=== PATIENT | female | born 1935 | race Caucasian/White ===

== ENCOUNTER 2019-10-06 21:19 | Emergency (ER) | payer MEDICARE, OTHER, SELFPAY ==
[2019-10-06] VITALS (20 sets, daily range): BP systolic 150–185; BP diastolic 68–76; PULSE 77–98; RESP 20; TEMP 37.3; O2SAT 95–98; BMI 23.8
--- NOTE | 2019-10-06 22:30 | ED_ITS ---
Entered by Rand Carmen, acting as scribe for Mallory Marques HPI - General Adult General: Chief complaint: General Medical Stated complaint: high bp Time Seen by Provider: 10/06/19 22:28 Source: patient Mode of arrival: ambulatory Limitations: no limitations History of Present Illness: HPI narrative: 84 yo f came to the er for high blood pressure. Onset was today. Pt states that she has had a fever, pain urinating, and frequent urination. Pt is not having any nausea or vomiting at this time. Pt states that she is having some mild abd pain. MD complaint: high blood pressure Onset (ago): day(s) (today) Location: abdomen and genitals Radiation: non-radiation Severity: mild Quality: burning Pain Consistency: constant Relieving factors: none Exacerbating factors: none Associated symptoms: Deny chest pain, confusion, diaphoresis, dyspnea, headache (s), malaise, nausea, rash, palpitations, syncope or vomiting Review of Systems General: Reports: other (negative unless marked) Const: Reports: fever; Denies: chills, body aches, fatigue, malaise or diaphoresis Eyes: Denies: change in vision or blurry vision ENMT: Denies: throat pain, painful swallowing, hoarseness, ear pain, ear discharge, Change in hearing or nasal discharge Card: Denies: chest pain, palpitations, irregular heart rhythm, syncope, pre- syncope, shortness of breath on exertion or shortness of breath when lying down Resp: Denies: shortness of breath, productive cough, non-productive cough, wheezing, coughing up blood or chest congestion GI: Denies: abdominal pain, nausea, vomiting, vomiting blood, coffee grounds in vomit, diarrhea, constipation, cramping, blood in stool or black tarry stool : Denies: flank pain, painful urination, urinary frequency, urinary urgency, decreased urine ouput, urinary incontinence or blood in urine Musc: Denies: neck pain, back pain, extremity pain, extremity swelling, joint pain, joint swelling, joint warmth or joint stiffness Skin/Breast: Denies: rash, skin tenderness or yellow skin Neuro: Denies: headache, numbness in extremities, weakness in extremities, changes in sensation, lack of coordination, difficulty walking, dizziness, vertigo or confusion Endo: Denies: excessive thirst, tired all the time, cold intolerance, excessive sweating, flushing or hot flashes Levon/Lymph: Denies: easy bruising, easy bleeding, petechiae or enlarged lymph nodes All/Imm: Denies: hives, throat swelling, tongue swelling, facial swelling or acute wheezing PFSH ED PFSH: Statuses (acute, chronic, etc) shown below reflect problem list status as previously entered and may not be historically accurate Social History Smoking and tobacco status: never smoked Physical Exam Const: COMMON NORMALS: no apparent distress, oriented x3, no limitations, healthy appearing and well nourished EXAM LIMITATIONS: no altered mental status GENERAL APPEARANCE: cooperative, well kempt and well developed ORIENTATION/CONSCIOUSNESS: Yes awake HENMT: COMMON NORMALS: normocephalic, head/scalp atraumatic, hearing grossly normal bilaterally, external ears normal, EAC's normal, external nose normal and moist oral mucous membranes HEAD & SCALP: normal to inspection, normocephalic and atraumatic FACE & SINUS: normal facial exam and face symmetric NOSE: external nose normal and nares normal EXTERNAL EAR: Yes external ears normal EXTERNAL AUDITORY CANAL: EAC's normal MOUTH: oral and palatal mucosa normal and tongue normal Eye: COMMON NORMALS: PERRL, EOMs intact bilaterally, conjunctivae normal and no scleral icterus GENERAL EYE: normal appearance of both eyes and normal light reflex CONJUNCTIVA: Yes conjunctivae normal SCLERA: sclerae normal CORNEA: Yes corneas normal PUPIL: Yes PERRL DIRECT OPHTHALMOSCOPY: Yes normal light reflex Neck/C-Spine: COMMON NORMALS: full ROM, no lymphadenopathy, supple, no meningeal signs and no JVD GENERAL: Yes normal visual inspection and Yes trachea midline CERVICAL SPINE: Yes cervical ROM normal Chest: COMMONS NORMALS: inspection of chest normal and palpation of chest normal Resp: COMMON NORMALS: normal respiratory effort, no retractions, no use of accessory muscles and clear to auscultation bilaterally EFFORT & INSPECTION: Yes able to speak in complete sentences AUSCULTATION: clear to auscultation bilaterally Cardio: COMMON NORMALS: no JVD, regular rate, regular rhythm, S1 normal heart sound, S2 normal heart sound, no gallops, no clicks, no murmurs and no rub JUGULAR VENOUS DISTENTION: no JVD RATE: regular rate RHYTHM: regular rhythm HEART SOUNDS: S1 normal and S2 normal GI: COMMON NORMALS: soft to palpation, non-tender, no hepatosplenomegaly and no masses INSPECTION: Yes normal to inspection PALPATION: Yes soft and Yes no hepatosplenomegaly : COMMON NORMALS: Yes no CVA tenderness BLADDER/KIDNEY EXAM: Yes no CVA tenderness Back/Pelvis: COMMON NORMALS: no CVA tenderness, thoracic and lumbar spine normal to inspection, no thoracic nor lumbar tenderness and thoraco-lumbar ROM normal Extremity: COMMON NORMALS: normal to inspection, full ROM, normal capillary refill, no joint enlargement, no clubbing, cyanosis or edema and no calf tenderness Neuro: COMMON NORMALS: oriented x3, CN's II-XII intact bilaterally, moves all extremities, no focal motor deficits and no sensory deficits noted MENINGEAL SIGNS: Yes no meningeal signs Psych: COMMON NORMALS: mental status grossly normal, thought process normal, cooperative, affect normal, speech normal and activity/motor behavior normal APPEARANCE: Yes well kempt SPEECH: Yes normal speech THOUGHT PROCESS: normal thought process Skin: COMMON NORMALS: no rashes or lesions noted, skin turgor normal, no jaundice, no petechiae and no mottling GENERAL SKIN EXAM: no rashes or lesions noted and turgor normal Course Vital Signs: Vital signs: Vital Signs Temperature 99.2 F 10/06/19 22:14 Pulse Rate 80 10/07/19 00:14 Respiratory Rate 20 H 10/07/19 00:14 Blood Pressure 160/71 10/07/19 00:14 Pulse Oximetry 95 10/07/19 00:14 MDM - General Adult [facility] Narrative: Medical decision making narrative: The patient has a mild cystitis. She has no vomiting or fever. I will discharge the patient home on Omnicef after a shot of Rocephin here. Patient has no abdominal tenderness palpation. I see no sign of appendicitis. Lab Data: Labs: Lab Results 10/06/19 Range/Units 22:48 Urine Color Yellow (Yellow) Urine Appearance Cloudy (CLEAR) Urine pH 6.5 (5-7) Ur Specific Gravit y 1.015 (1.005-1.030) Urine Protein 1+ H (Negative) Urine Glucose (UA) 2+ (Normal) Urine Ketones Negative (Negative) Urine Occult Blood 2+ H (Negative) Urine Nitrate Positive H (Negative) Urine Bilirubin Neg (NEGATIVE) Urine Urobilinogen Norm (Negative) mg/dL Ur Leukocyte Nancy ase 2+ H (Negative) Urine RBC 5-10 H (0-2) /hpf Urine WBC >100 H (0-5) /hpf Ur Squamous Epith Cells 0-4 H (0-5) Urine Bacteria 3+ H (NONE) Discharge Plan Discharge Patient Disposition: Home, Self-Care Clinical Impression: Cystitis Condition: Stable Prescriptions: New cefdinir 300 mg capsule 300 mg PO Q12H 10 Days Qty: 20 RF: 0 No Action levothyroxine 75 mcg Tablet 75 mcg PO DAILY RF: 0 losartan-hydrochlorothiazide 100-25 mg Tablet 1 tab PO DAILY RF: 0 metformin 500 mg Tablet Extended Release 24 Hr 500 mg PO BID RF: 0 amlodipine 10 mg Tablet 10 mg PO DAILY RF: 0 lovastatin 20 mg Tablet 20 mg PO DAILY RF: 0 oxybutynin chloride 5 mg Tablet 5 mg PO DAILY RF: 0 Multi For Her 50 Plus 400-80 mcg Capsule 400 cap PO DAILY RF: 0 melatonin 3 mg Capsule 3 mg PO PRN RF: 0 vitamin E 400 unit Capsule 400 unit PO DAILY RF: 0 Vitamin D3 1,000 unit Capsule 1,000 unit PO DAILY RF: 0 Calcium 600 + D(3) 600 mg calcium- 200 unit Capsule PO RF: 0 Discharge Orders: Discharge Order (Routine); Ordered 10/06/19 Ordered By: Mallory Marques Referrals: Tavon Mclain DO [Primary Care Provider] - 1-3 days Discharge Diet: Advance as tolerated Discharge Activity: Increase activity as tolerated Patient Instructions: Urinary Tract Infection in Women (ED) Activity Restrictions/Additional Instructions: Please return to the ER immediately for any of the signs or symptoms listed on your discharge instruction sheets, worsening/changing of your symptoms, you are not getting better as quickly as expected, or for ANY other cause or concerns. 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
--- NOTE | 2019-10-06 23:19 | PC.NURSE ---
family requesting lab results. pt and family made aware that labs have not resulted yet. voiced understanding noted
[2019-10-06 23:21] LABS: Add Urine Culture? Yes; Add Urine Microscopic? YES; Bacteria Urine 3+; Bilirubin Urine Neg (NEGATIVE); Blood Urine 2+ (Negative); Glucose Urine UA 2+ (Normal); Ketones Urine Negative (Negative); Leukocyte Esterase Urine 2+ (Negative); Nitrate Urine Positive (Negative); Protein Urine 1+ (Negative); Specific Gravity, Urine 1.015 (1.005-1.030); Squamous Epithelial Cell Urine 0-4 (0-5); Urine Appearance Cloudy (CLEAR); Urine Color Yellow (Yellow); Urobilinogen Urine Norm (Negative); WBC Urine >100 /hpf (0-5); pH Urine 6.5 (5-7)
[2019-10-07] VITALS: BP 160/71; PULSE 80; O2SAT 95
[2019-10-07 00:05] VITALS: BP 160/71
[2019-10-07 00:10] VITALS: BP 160/71
[2019-10-07 00:14] VITALS: BP 160/71; PULSE 80; RESP 20; O2SAT 95
== END 2019-10-07 00:15 | disposition home or self-care (01) ==
PROVIDERS: Emergency Provider Emergency Medicine; Family Provider Electrodiagnostic Medicine; PCP Electrodiagnostic Medicine
DX: N30.90 Cystitis, unspecified without hematuria (principal)
CPT/HCPCS: 81003; 87086; 96372; 99283; A9270; J0696; J2001

== ENCOUNTER → 2020-06-26 15:43 | Outpatient (BNVA) | payer MEDICARE, OTHER, SELFPAY | PROVIDERS: Family Provider Electrodiagnostic Medicine; PCP Electrodiagnostic Medicine; Referring Provider Electrodiagnostic Medicine; Visit Provider Nurse Practitioner Family | DX: R32 Unspecified urinary incontinence (principal) | CPT/HCPCS: 80053; 81001 ==

== ENCOUNTER → 2020-07-17 10:49 | Outpatient (BNVA) | payer MEDICARE, OTHER, SELFPAY | PROVIDERS: Family Provider Electrodiagnostic Medicine; PCP Electrodiagnostic Medicine; Visit Provider Nurse Practitioner Family | DX: N39.41 Urge incontinence (principal); N39.0 Urinary tract infection, site not specified | CPT/HCPCS: 81003 ==

== ENCOUNTER 2020-08-05 14:26 | Outpatient (CLI) | payer MEDICARE, OTHER, SELFPAY ==
--- NOTE | 2020-08-05 14:37 | MM_ITS ---
WS: [id number] RIGHT DIGITAL MAMMOGRAM WITH CAD LEFT chest wall ultrasound. HISTORY: HX OF BREAST CA;LT MASTECTOMY COMPARISON: 05/09/2019, 05/08/2018 and 05/03/2017 Technique: CC, MLO and ML views. Breast composition: There are scattered areas of fibroglandular density. Stable scattered fibrogland ular densities within breasts are stable over multiple years. Benign vascular calcifications. LEFT chest wall ultrasound. Patient describes a palpable area over the LEFT chest wall at the site of the mastectomy. Ultrasound is directed to that area today. There is no mass identified. The ribs are very close to the surface o f the skin. MM/[place] [id number] IMPRESSION: BI-RADS: 2-Benign FOLLOW UP: 1 Year Follow-up No mass along the LEFT chest wall at the lumpectomy site and palpable site.
== END 2020-08-05 14:27 | disposition home or self-care (01) ==
PROVIDERS: PCP Electrodiagnostic Medicine; Visit Provider Electrodiagnostic Medicine
DX: Z85.3 Personal history of malignant neoplasm of breast (principal); Z90.12 Acquired absence of left breast and nipple
CPT/HCPCS: 76642; 77065

== ENCOUNTER 2020-09-16 11:03 | Outpatient (CLI) | payer MEDICARE, SELFPAY ==
--- NOTE | 2020-09-16 11:21 | XRR_ITS ---
PROCEDURE INFORMATION: Exam: XR Lumbosacral Spine, 2 or 3 Views Exam date and time: 09/16/2020 12:04 PM Age: 85 years old Clinical indication: Pain and injury or trauma; Blunt trauma (contusions or hematomas); Low back pain; Prior surgery; Surgery date: 6+ months; Patient HX: C/O acute back pain after fall, left rib pain. HX of breast cancer; Additional info: Acute back pain/accidental fall/htn TECHNIQUE: Imaging protocol: XR of the lumbosacral spine, 2 or 3 views. COMPARISON: No relevant prior studies available. FINDINGS: Bones/joints: No fracture or other acute abnormalities are present. Moderate degenerative disease is present with disc space narrowing and sclerosis. There is sclerosis and hypertrophy of the lower lumbar facet joints. There is no malalignment. Soft tissues: Unremarkable. Vasculature: There is prominent atherosclerotic calcification of the aorta. XR/XR lumbar spine 2-3V* [id number] IMPRESSION: Moderate chronic degenerative disease. No acute abnormalities are seen in the lumbar spine.
--- NOTE | 2020-09-16 11:21 | XRR_ITS ---
PROCEDURE INFORMATION: Exam: XR Ribs, Bilateral Exam date and time: 09/16/2020 12:04 PM Age: 85 years old Clinical indication: Pain and injury or trauma; Rib area, left side; Blunt trauma; Other: Left rib and low back pain; Prior surgery; Surgery date: 6+ months; Surgery type: Breast; Patient HX: C/O left rib pain and low back after fall; Additional info: Left sided rib pain/accidental fall TECHNIQUE: Imaging protocol: XR of the bilateral ribs. Views: 3 views. COMPARISON: CR Chest 1 [place] [id number] 02/23/2019 12:58 PM FINDINGS: Bones/joints: The ribs appear normal bilaterally.. Soft tissues: Surgical clips are present in the left axilla. XR/XR ribs BI 3V* [id number] IMPRESSION: Normal ribs.
== END 2020-09-16 11:04 | disposition home or self-care (01) ==
LOC: RAD 11:12
PROVIDERS: PCP Electrodiagnostic Medicine; Visit Provider Electrodiagnostic Medicine
DX: R07.81 Pleurodynia (principal); M54.89 Other dorsalgia; I10 Essential (primary) hypertension; W19.XXXA Unspecified fall, initial encounter
CPT/HCPCS: 71110; 72100

== ENCOUNTER 2020-10-02 09:27 | Outpatient (CLI) | payer MEDICARE, OTHER, SELFPAY ==
--- NOTE | 2020-10-02 09:49 | CT_ITS ---
WS: [id number] CT TEMPORAL BONES TECHNIQUE: Noncontrast CT of the temporal bones with coronal and sagittal reformatted images. CLINICAL INFORMATION: OTORRHEA L EAR/TYMPANIC MEMBRANE L EAR COMPARISON: CT head 6 [id number] DLP: 1993.[address] scans at [facility] use at least one of these dose optimization techniques: automat ed exposure control; mA and/or kV adjustment per patient size (includes targeted exams where dose is matched to clinical indication); or iterative reconstruction. FINDINGS: RIGHT: Mastoid air cells are well aerated. Normal external auditory canal. Ossicles are normal in appearance . Middle ear is well aerated. Normal tegmen tympani. Semicircular canals and cochlea are normal in ap pearance. Prussak's space is normal. Normal inner ear structures. Normal vestibular aqueduct. Facial nerve recess is normal. LEFT: Chronic appearing opacification of the left mastoid air cells and left middle ear. Opacification of t he epitympanum, mesotympanum and hypotympanum. Soft tissue thickening in the middle ear surrounds the ossicles. Thickening of the tympanic membrane. Sclerosis involving the left mastoid compatible with chronic mastoiditis. Normal external auditory canal. Ossicles are normal in appearance. Normal tegmen tympani. Semicircula r canals and cochlea are normal in appearance. Normal vestibular aqueduct. Facial nerve recess is nor mal. Visualized intracranial contents and posterior fossa are normal. Mild mucosal thickening paranasal si nuses. Normal posterior nasopharynx. Small retention cysts in the maxillary sinuses. Intracranial vas cular calcification. CT/CT temporal bone wo con* [id number] IMPRESSION: 1. Chronic appearing opacification of the left middle ear and mastoid air cell s. Soft tissue opacification of the middle ear with thickening of the tympanic membrane. This is likely due to chronic infectious or inflammatory etiologies. 2. Left Scutum appears intact. Ossicles appear intact. 3. Chronic appearing opacification left mastoid air cells with sclerosis consi stent with chronic mastoiditis. 4. Right mastoid air cells are well aerated. Right inner ear structures are no rmal.
== END 2020-10-02 09:28 | disposition home or self-care (01) ==
PROVIDERS: PCP Electrodiagnostic Medicine; Visit Provider Specialist
DX: D14.0 Benign neoplasm of middle ear, nasal cavity and accessory sinuses (principal); H72.02 Central perforation of tympanic membrane, left ear; H73.892 Other specified disorders of tympanic membrane, left ear; H92.12 Otorrhea, left ear
CPT/HCPCS: 70480

== ENCOUNTER → 2021-05-12 16:52 | Outpatient (BNVA) | payer MEDICARE, OTHER, SELFPAY | PROVIDERS: PCP Electrodiagnostic Medicine; Visit Provider Nurse Practitioner Family | DX: N39.0 Urinary tract infection, site not specified (principal) | CPT/HCPCS: 81000 ==

== ENCOUNTER 2021-06-02 22:18 | Emergency (ER) | payer MEDICARE, OTHER, SELFPAY ==
[2021-06-02 22:34] VITALS: BP 187/86; PULSE 94; RESP 18; TEMP 36.3; O2SAT 99; BMI 22.6
--- NOTE | 2021-06-02 22:54 | ED_ITS ---
HPI - Female Genitourinary General: Chief complaint: Urogenital-Female Stated complaint: bladder infection Time Seen by Provider: 06/02/21 22:53 History of Present Illness: HPI Narrative: Patient is a an 85-year-old female comes to the ED with a UTI. Patient saw the nurse practitioner Dr. Foote's office today and she was diagnosed with a UTI. She was sent home with a prescription for Cipro, but was unable to get to the pharmacy and pick it up today. Just prior to arrival to the ED patient started feeling a little hot so she decided come to the ED to be evaluated. Upon arrival here in the ED she says her symptoms of feeling hot have completely resolved. She is asymptomatic and has no complaints. Denies any fever, chills, chest pain, shortness of breath, abdominal pain, nausea/vomiting, bowel symptoms, headache. She does endorse some dysuria. She was wanting to get dose of her Cipro tonight here in the ED so she does not have to wait till tomorrow to get her first dose when she picks up her prescription. Associated symptoms: Deny abdominal pain, headache(s) or nausea Review of Systems Narrative: Hot flash episode. Const: Denies: fever(s), chills or fatigue Eyes: Denies: change in vision or eye discomfort ENMT: Denies: throat pain, odynophagia, nasal discharge or nasal congestion Card: Denies: chest pain, palpitations, edema, swelling of feet/ankles, dyspnea on exertion or orthopnea Resp: Denies: dyspnea, productive cough or non-productive cough GI: Denies: abdominal pain, nausea, vomiting, diarrhea, constipation or hematochezia : Reports: dysuria; Denies: flank pain or hematuria Musc: Denies: neck pain, back pain or extremity swelling Skin/Breast: Denies: rash or new lesions Neuro: Denies: headache(s), numbness in extremities or weakness in extremities PFSH ED PFSH: Medical History Cystocele HTN (hypertension) Hx of breast cancer Hypothyroidism Recurrent UTI Urgency incontinence Surgical History H/O arthroscopy of left knee H/O mastectomy LEFT H/O tubal ligation Family History Sister CAD (coronary artery disease) Brother CAD (coronary artery disease) Father Cancer Mother Heart disease Blood clots in brain Social History Alcohol intake: never Marital status: / Current occupational status: retired History of recent travel: No Physical Exam Const: COMMON NORMALS: no acute distress, patient oriented x3, healthy appearing and alert GENERAL APPEARANCE: cooperative and comfortable HENMT: COMMON NORMALS: normocephalic HEAD & SCALP: normocephalic MOUTH: Normal oral and palatal mucosa present THROAT: posterior oropharynx normal and uvula midline Eye: COMMON NORMALS: Equal, round and reactive pupils present PUPIL: Yes Equal, round and reactive pupils present Neck/C-Spine: COMMON NORMALS: supple GENERAL: Yes normal visual inspection Resp: COMMON NORMALS: normal respiratory effort, No retractions, No use of accessory muscles and clear to auscultation bilaterally AUSCULTATION: clear to auscultation bilaterally Cardio: COMMON NORMALS: regular rate, regular rhythm, S1 normal heart sound present, S2 normal heart sound present, No gallops present (Cardio), No clicks present (Cardio), No murmurs present (Cardio) and Peripheral pulses 2+ throughout RATE: regular rate RHYTHM: regular rhythm HEART SOUNDS: S1 normal heart sound present and S2 normal heart sound present PERIPHERAL PULSES: Peripheral pulses 2+ throughout GI: COMMON NORMALS: Normal to inspection, nondistended, normoactive bowel sounds present, Soft to palpation, non-tender and no masses PALPATION: Yes Soft to palpation : COMMON NORMALS: Yes no CVA tenderness BLADDER/KIDNEY EXAM: Yes no CVA tenderness Back/Pelvis: COMMON NORMALS: no CVA tenderness Extremity: COMMON NORMALS: normal to inspection Neuro: COMMON NORMALS: patient oriented x3 and moves all extremities SENSORIUM/ORIENTATION: Yes alert Skin: GENERAL SKIN EXAM: dry skin Course Vital Signs: Vital signs: Vital Signs Temperature 97.4 F L 06/03/21 00:04 Pulse Rate 72 06/03/21 00:04 Respiratory Rate 18 06/03/21 00:04 Blood Pressure 137/64 06/03/21 00:04 Pulse Oximetry 99 06/03/21 00:04 MDM - Female MDM Narrative: Medical decision making narrative: Patient is a 85-year-old fe male that comes to the ED with UTI symptoms. Patient was seen at urologist office earlier today and diagnosed with a UTI. She was sent home with a prescription for Cipro but was unable to pick it up today so she has not taken her first dose yet. She is developed an episode of some hot flashes and came to the ED for evaluation. She said her hot flashes resolved before she arrived to the ED and is currently asymptomatic. She has no other complaints and would like to get dose of ciprofloxacin here in the ED. Vitals are stable exam is benign. UA was performed and showed some bacteria and some white and red blood cells. She was given a dose of Cipro while here in the ED and diagnosed with a UTI and discharged home. Patient was told to follow-up with PCP in 7 to 10 days for reevaluation. Return to ED precautions given. Patient understood and agree with plan. Lab Data: Attestation: I reviewed the patient's lab results. Labs: Lab Results 06/02/21 Range/Units 22:35 Urine Color Yellow (Yellow) Urine Appearance Clear (CLEAR) Urine pH 7 (5-7) Ur Specific Gravit y 1.000 L (1.005-1.030) Urine Protein Trace (Negative) Urine Glucose (UA) Norm (Normal) Urine Ketones Negative (Negative) Urine Blood Neg (Negative) Urine Nitrate Negative (Negative) Urine Bilirubin Neg (Negative) Urine Urobilinogen Norm (Negative) mg/dL Ur Leukocyte Nancy ase Negative (Negative) Urine RBC 0-4 H (0-2) /hpf Urine WBC 0-4 H (0-5) /hpf Ur Squamous Epith Cells 0-4 H (0-5) /hpf Amorphous Sediment Not Reportable Urine Bacteria 3+ H (NONE) /hpf Discharge Plan Discharge Patient Disposition: Home Clinical Impression: UTI (urinary tract infection) Qualifiers: Urinary tract infection type: acute cystitis Hematuria presence: with hematuria Qualified Code(s): N30.01 - Acute cystitis with hematuria Condition: Stable Prescriptions: No Action ascorbic acid (vitamin C) 1,000 mg tablet 1 gm PO DAILY RF: 0 levothyroxine 75 mcg Tablet 75 mcg PO DAILY RF: 0 losartan-hydrochlorothiazide 100-25 mg Tablet 1 tab PO DAILY RF: 0 amlodipine 10 mg Tablet 10 mg PO DAILY RF: 0 Multi For Her 50 Plus 400-80 mcg Capsule 400 cap PO DAILY RF: 0 vitamin E 400 unit Capsule 400 unit PO DAILY RF: 0 Calcium 600 + D(3) 600 mg calcium- 200 unit capsule PO BID RF: 0 Discharge Orders: Discharge ED (Routine); Ordered 06/02/21 Ordered By: Jose Armando Portillo Referrals: Tavon Mclain, DO [Primary Care Provider] - Discharge Diet: Regular Discharge Activity: Resume usual activity Patient Instructions: Urinary Tract Infection in Women (ED) Activity Restrictions/Additional Instructions: Follow-up with medical provider as directed in 7 to 10 days for reevaluation. Go get your previously prescribed ciprofloxacin prescription filled tomorrow morning and start taking it as directed.. Return to the ER or your medical provider if condition worsens. Please read and understand discharge instructi ons. Thank you for choosing [facility] for your healthcare needs today. Please realize this is an emergency room and that we are providing you with a medical screening exam and this may not be complete and all inclusive of all the testing and or work up that you may need to determine your ailment or severity of your illness. It is very important that you follow up as instructed or that you return to the Emergency Department should you have concerns or if your condition changes or worsens in any way. Coding Level of Care Code ED Certified Adapted Physical Educator for Yumiko Reza Exam Comprehensive
[2021-06-02 22:56] LABS: Add Urine Culture? Yes; Add Urine Microscopic? YES; Bacteria Urine 3+ /hpf; Bilirubin Urine Neg (Negative); Blood Urine Neg (Negative); Glucose Urine UA Norm (Normal); Ketones Urine Negative (Negative); Leukocyte Esterase Urine Negative (Negative); Nitrate Urine Negative (Negative); Protein Urine Trace (Negative); RBC Urine 0-4 /hpf (0-2); Squamous Epithelial Cell Urine 0-4 /hpf (0-5); Urine Appearance Clear (CLEAR); Urine Color Yellow (Yellow); Urobilinogen Urine Norm (Negative); WBC Urine 0-4 /hpf (0-5); pH Urine 7 (5-7)
[2021-06-02] MEDS: ciprofloxacin 500 mg Tablet PO (23:58)
[2021-06-03] VITALS: BP 137/64; PULSE 72; RESP 18; TEMP 36.3; O2SAT 99
[2021-06-03 00:04] VITALS: BP 137/64; PULSE 72; RESP 18; TEMP 36.3; O2SAT 99
== END 2021-06-03 00:02 | disposition home or self-care (01) ==
PROVIDERS: Emergency Medicine; Emergency Provider Physician Assistant; PCP Electrodiagnostic Medicine
DX: N30.01 Acute cystitis with hematuria (principal); I10 Essential (primary) hypertension; Z85.3 Personal history of malignant neoplasm of breast
CPT/HCPCS: 81001; 81003; 87077; 87086; 87186; 99283

== ENCOUNTER → 2021-06-22 14:10 | Outpatient (BNVA) | payer MEDICARE, OTHER, SELFPAY | PROVIDERS: PCP Electrodiagnostic Medicine; Visit Provider Nurse Practitioner Family | DX: N39.0 Urinary tract infection, site not specified (principal); N39.41 Urge incontinence | CPT/HCPCS: 81003 ==

== ENCOUNTER → 2021-07-27 10:32 | Outpatient (BNVA) | payer MEDICARE, OTHER, SELFPAY | PROVIDERS: PCP Electrodiagnostic Medicine; Visit Provider Urology | DX: N39.0 Urinary tract infection, site not specified (principal) | CPT/HCPCS: 81003 ==

== ENCOUNTER 2021-10-01 09:29 | Outpatient (CLI) | payer MEDICARE, OTHER, SELFPAY ==
--- NOTE | 2021-10-01 09:38 | MM_ITS ---
WS: [id number] DIAGNOSTIC RIGHT DIGITAL MAMMOGRAM WITH CAD HISTORY: HX OF BREAST Ca; lt MASTECTOMY COMPARISON: 10/05/2019, 05/09/2019 and 05/08/2018, 04/30/2016 Technique: CC, MLO and ML views. Breast composition: Scattered asymmetries scattered throughout the breast are stable since at least . Breast arterial calcifications and benign round calcifications. MM/[place] [id number] IMPRESSION: BI-RADS: 2-Benign FOLLOW UP: 1 Year Follow-up
== END 2021-10-01 09:30 | disposition home or self-care (01) ==
LOC: RADSHAW 09:35
PROVIDERS: PCP Electrodiagnostic Medicine; Visit Provider Electrodiagnostic Medicine
DX: Z85.3 Personal history of malignant neoplasm of breast (principal); Z90.12 Acquired absence of left breast and nipple
CPT/HCPCS: 77065

== ENCOUNTER 2021-10-26 18:33 | Emergency (ER) | payer MEDICARE, OTHER, SELFPAY ==
[2021-10-26 18:45] VITALS: BP 169/97; PULSE 101; RESP 18; TEMP 38.4; O2SAT 94; BMI 22.9
--- NOTE | 2021-10-26 19:00 | XRR_ITS ---
PROCEDURE INFORMATION: Exam: XR Chest Exam date and time: 10/26/2021 7:00 PM Age: 86 years old Clinical indication: Cough and fever; Additional info: Fever, cough TECHNIQUE: Imaging protocol: XR of the chest. Views: 1 view. COMPARISON: No relevant prior studies available. FINDINGS: Lungs: The lungs are hyperinflated, consistent with COPD. Minimal increased density at the left lung base, consistent with atelectasis versus early infiltrate. The right lung appears unremarkable. Pleural spaces: No pleural effusion. No pneumothorax. Heart/Mediastinum: No cardiomegaly. Vasculature: Atherosclerosis of the thoracic aorta. Bones/joints: Degenerative thoracic spine changes are noted. XR/XR chest 1V portable [id number] IMPRESSION: 1. The lungs are hyperinflated, consistent with COPD. 2. Minimal increased density at the left lung base, consistent with atelectasis versus early infiltrate. 3. The right lung appears unremarkable.
[2021-10-26 19:52] LABS: Basophils % 0.2 %; Eosinophils % 0.3 %; Hematocrit 33.4 % (37.0-47.0); Hemoglobin 10.9 g/dL (11.5-15.3); Lymphocytes # 0.7 10^3/uL (0.8-4.8); Mean Corpuscular HGB Conc 32.6 g/dL (30.0-36.0); Mean Corpuscular Hemoglobin 25.5 pg (28.0-34.0); Monocytes # 0.4 10^3/uL (0.2-0.9); Monocytes % 7.1 %; Neutrophils # 4.81 10^3/uL (1.8-7.7); Neutrophils % 79.9 %; Nucleated Red Blood Cells % 0 %; Platelet Count 235 10^3/cmm (130-400); Red Blood Count 4.28 10^6/uL (4.1-5.3); Red Cell Distribution Width 15.5 % (12.1-15.1)
[2021-10-26 20:04] LABS: Lactic Sepsis W/Reflex 0.7 mmol/L (0.5-2.2)
[2021-10-26 20:06] LABS: Alanine Aminotransferase 12 U/L (0-33); Albumin Level 3.9 g/dL (3.5-5.2); Alkaline Phosphatase 67 IU/L (35-105); Anion Gap 20.4 (5-19); Aspartate Amino Transferase 25 U/L (0-32); Blood Urea Nitrogen 26 mg/dL (8-23); Calcium 8.7 mg/dL (8.5-10.5); Carbon Dioxide 23 mmol/L (22-29); Chloride 94 mmol/L (98-107); Globulin 2.6 g/dL (1.3-4.6); Glucose 159 mg/dL (65-115); Osmolality Calculated 286 mOsm/kg (285-295); Potassium 3.4 mmol/L (3.5-5.1); Sodium 134 mmol/L (136-145); Total Bilirubin 0.2 mg/dL (0.15-1.2); Total Protein 6.5 g/dL (6.6-8.7)
--- NOTE | 2021-10-26 22:01 | W.ED.FEVER ---
HPI - Fever General: Chief Complaint: Fever Stated Complaint: fever last week, cough x 1 wk, vomiting/diarrhea Time Seen by Provider: 10/26/21 21:50 Source: patient Mode of arrival: ambulatory Limitations: no limitations History of Present Illness: 86-year-old female states over the last 5 to 6 days she been having some slight body aches along with fever she also had vomiting diarrhea and a slight cough. She has been around other people but unsure if she is actually been exposed to Covid. She states that she actually feels better currently and would just like to go home and she has been waiting here for some time. She had blood work out in the waiting room states that her vomiting diarrhea is improved slightly she has no shortness of breath she states she has had this persistent cough. Associated symptoms: Reports chills, diarrhea, nausea and vomiting; Deny chest pain, dysuria or headache(s) Review of Systems Const: Reports: fever(s) and chills Eyes: Denies: blurry vision or eye discomfort ENMT: Denies: throat pain or dental pain Card: Denies: chest pain Resp: Reports: non-productive cough GI: Reports: nausea, vomiting and diarrhea : Denies: dysuria Musc: Denies: neck pain or back pain Skin/Breast: Denies: rash Neuro: Denies: headache(s) Psych: Denies: depression Levon/Lymph: Denies: easy bruising All/Imm: Denies: urticaria PFSH ED PFSH: Medical History Cystocele HTN (hypertension) Hx of breast cancer Hypothyroidism Recurrent UTI Urgency incontinence Surgical History H/O arthroscopy of left knee H/O mastectomy LEFT H/O tubal ligation Family History Sister CAD (coronary artery disease) Brother CAD (coronary artery disease) Father Cancer Mother Heart disease Blood clots in brain Social History Smoking and tobacco status: never smoked Alcohol intake: never Marital status: / Current occupational status: retired History of recent travel: No Female Reproductive History: Spontaneous abortions: No Physical Exam Const: COMMON NORMALS: no acute distress, patient oriented x3 and healthy appearing HENMT: COMMON NORMALS: normocephalic and atraumatic HEAD & SCALP: normocephalic and atraumatic Eye: COMMON NORMALS: Equal, round and reactive pupils present and EOMs intact bilaterally PUPIL: Yes Equal, round and reactive pupils present Neck/C-Spine: COMMON NORMALS: full ROM and supple Chest: COMMONS NORMALS: normal inspection of the chest and normal palpation of entire chest wall Resp: COMMON NORMALS: normal respiratory effort, No retractions, No use of accessory muscles and clear to auscultation bilaterally AUSCULTATION: clear to auscultation bilaterally Cardio: COMMON NORMALS: regular rate, regular rhythm and No murmurs present (Cardio) RATE: regular rate RHYTHM: regular rhythm GI: COMMON NORMALS: Normal to inspection, nondistended, normoactive bowel sounds present, Soft to palpation, non-tender and no masses PALPATION: Yes Soft to palpation Extremity: COMMON NORMALS: normal to inspection and full ROM Neuro: COMMON NORMALS: patient oriented x3, moves all extremities and no focal motor deficits Psych: COMMON NORMALS: mental status grossly normal, Normal thought process present and cooperative THOUGHT PROCESS: Normal thought process present Skin: COMMON NORMALS: no rashes or lesions noted and no wounds GENERAL SKIN EXAM: no rashes or lesions noted Course Vital Signs: Vital signs: Vital Signs Temperature 101.1 F H 10/26/21 18:45 Pulse Rate 101 H 10/26/21 18:45 Respiratory Rate 18 10/26/21 18:45 Blood Pressure 169/97 10/26/21 18:45 Pulse Oximetry 94 10/26/21 18:45 MDM - Fever Medical Decision Making Patient presents here with fever did test positive for Covid. She is well-appearing here to our crying any oxygen and would like to go home I feel she is stable for discharge she is to follow-up with PCP she does monitor oxygen at home return if she has any hypoxia or worsening symptoms she understands agrees to plan. Lab Data : 10/26/21 19:35 10/26/21 19:35 Radiology Impressions Chest X-Ray 10/26/21 19:00 IMPRESSION: 1. The lungs are hyperinflated, consistent with COPD. 2. Minimal increased density at the left lung base, consistent with atelectasis versus early infiltrate. 3. The right lung appears unremarkable. Laboratory Results WBC 6.0 10^3/uL (4.0-10.0) 10/26/21 19:35 RBC 4.28 10^6/uL (4.1-5.3) 10/26/21 19:35 Hgb 10.9 g/dL (11.5-15.3) L 10/26/21 19:35 Hct 33.4 % (37.0-47.0) L 10/26/21 19: MCV 78.0 fl (81-99) L 10/26/21 19: MCH 25.5 pg (28.0-34.0) L 10/26/21 19: MCHC 32.6 g/dL (30.0-36.0) 10/26/21 19:35 RDW 15.5 % (12.1-15.1) H 10/26/21 19:35 Plt Count 235 10^3/cmm (130-400) 10/26/21: MPV 10.0 fL (7.4-10.4) 10/26/21 19:35 Neut % (Auto) 79.9 % 10/26/21 19: Lymph % (Auto) 12.0 % 10/26/21 19:35 [place] % (Auto) 7.1 % 10/26/21 19:35 Eos % (Auto) 0.3 % 10/26/21 19:35 Baso % (Auto) 0.2 % 10/26/21:35 Neut # (Auto) 4.81 10^3/uL (1.8-7.7) 10/26/21 19:35 Lymph # (Auto) 0.7 10^3/uL (0.8-4.8) L 10/26/21 19:35 [place] # (Auto) 0.4 10^3/uL (0.2-0.9) 10/26/21 19:35 Eos # (Auto) 0.0 10^3/uL (0.0-0.8) 10/26/21 19:35 Baso # (Auto) 0.0 10^3/uL (0.0-0.1) 10/26/21 19:35 Nucleated RBC % (auto) 0 % 10/26/21 19:35 Nucleated RBCs # 0.0 /100WBC 10/26/21 19:35 Sodium 134 mmol/L (136-145) L 10/26/21 19:35 Potassium 3.4 mmol/L (3.5-5.1) L 10/26/21 19:35 Chloride 94 mmol/L (98-107) L 10/26/21 19:35 Carbon Dioxide 23 mmol/L (22-29) 10/26/21 19:35 Anion Gap 20.4 (5-19) H 10/26/21 19:35 BUN 26 mg/dL (8-23) H 10/26/21 19:35 Creatinine 1.0 mg/dL (0.5-0.9) H 10/26/21 19:35 GFR Calculation Not Reportable 10/26/21 19:35 Glucose 159 mg/dL (65-115) H 10/26/21 19:35 Calculated Osmolality 286 mOsm/kg (285-295) 10/26/21 19:35 Lactic Acid 0.7 mmol/L (0.5-2.2) 10/26/21 19:35 Calcium 8.7 mg/dL (8.5-10.5) 10/26/21 19:35 Total Bilirubin 0.2 mg/dL (0.15-1.2) 10/26/21 19:35 AST 25 U/L (0-32) 10/26/21 19:35 ALT 12 U/L (0-33) 10/26/21 19:35 Alkaline Phosphatase 67 IU/L (35-105) 10/26/21 19:35 Total Protein 6.5 g/dL (6.6-8.7) L 10/26/21 19:35 Albumin 3.9 g/dL (3.5-5.2) 10/26/21 19:35 Globulin 2.6 g/dL (1.3-4.6) 10/26/21 19:35 Influenza Type A Ag Negative (Negative) 10/26/21 19:35 Influenza Type B Ag Negative (Negative) 10/26/21 19:35 SARS-CoV-2 Ag (Rapid) Positive (Negative) H 10/26/21 19:35 Imaging Data CXR: I personally reviewed and interpreted this imaging study as follows: Radiologist's impression: IMPRESSION: 1. The lungs are hyperinflated, consistent with COPD. 2. Minimal increased density at the left lung base, consistent with atelectasis versus early infiltrate. 3. The right lung appears unremarkable. Discharge Plan Discharge Patient Disposition: Home Clinical Impression: COVID-19 Condition: Stable Prescriptions: No Action ascorbic acid (vitamin C) 1,000 mg tablet 1 gm PO DAILY 0RF fluticasone propionate [Flonase Allergy Relief] 50 mcg/actuation spray,suspension 1 spray intranasal BID Qty: 18.2 0RF Rx Instructions: administer into each nostril dexamethasone 6 mg tablet 6 mg PO DAILY 7 Days Qty: 7 0RF promethazine-phenylephrine 6.25-5 mg/5 mL syrup 5 ml PO Q6H PRN (Reason: cold symptoms) Qty: 118 0RF levothyroxine 75 mcg Tablet 75 mcg PO DAILY 0RF losartan-hydrochlorothiazide 100-25 mg Tablet 1 tab PO DAILY 0RF amlodipine 10 mg Tablet 10 mg PO DAILY 0RF Multi For Her 50 Plus 400-80 mcg Capsule 400 cap PO DAILY 0RF vitamin E 400 unit Capsule 400 unit PO DAILY 0RF Calcium 600 + D(3) 600 mg calcium- 200 unit capsule PO BID 0RF Discharge Orders: Discharge ED (Routine); Ordered 10/26/21 Ordered By: Salty King Referrals: Tavon Mclain DO [Primary Care Provider] - 1-3 days Discharge Diet: Advance as tolerated Discharge Activity: Resume usual activity Patient Instructions: COVID-19 (Coronavirus Disease 2019) (ED) Coding Level of Care Code ED 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
[2021-10-26 22:26] LABS: Influenza A by IFA Negative (Negative); Influenza B by IFA Negative (Negative); SARS Covid-2 Antigen Positive (Negative)
== END 2021-10-26 22:40 | disposition home or self-care (01) ==
PROVIDERS: Physician Assistant; Emergency Provider Emergency Medicine; PCP Electrodiagnostic Medicine
DX: U07.1 COVID-19 (principal); I10 Essential (primary) hypertension; Z85.3 Personal history of malignant neoplasm of breast
CPT/HCPCS: 71045; 80053; 83605; 85025; 87040; 87426; 87804; 99282

== ENCOUNTER 2021-12-08 06:00 | Outpatient (RCR) | payer MEDICARE, OTHER, SELFPAY | END 2021-12-17 23:59 | disposition home or self-care (01) | LOC: MPT 06:00 | PROVIDERS: PCP Electrodiagnostic Medicine; Referring Provider Family Medicine; Visit Provider Family Medicine | DX: N39.41 Urge incontinence (principal) | CPT/HCPCS: 97110; 97161; 97530 ==

== ENCOUNTER → 2021-12-31 09:38 | Outpatient (BNVA) | payer MEDICARE, OTHER, SELFPAY | PROVIDERS: PCP Family Medicine; Visit Provider Family Medicine | DX: M17.0 Bilateral primary osteoarthritis of knee (principal); R07.89 Other chest pain | CPT/HCPCS: 71046; 73562 ==

== ENCOUNTER → 2022-01-19 08:23 | Outpatient (BNVA) | payer MEDICARE, OTHER, SELFPAY | PROVIDERS: PCP Family Medicine; Visit Provider Family Medicine | DX: N20.0 Calculus of kidney (principal); N39.0 Urinary tract infection, site not specified | CPT/HCPCS: 81000; 87077; 87086; 87184 ==

== ENCOUNTER 2022-02-02 14:49 | Outpatient (CLI) | payer MEDICARE, OTHER, SELFPAY ==
--- NOTE | 2022-02-02 14:56 | USCV_ITS ---
Evelina Mohr Age: 86 Gender: F : 1935 Exam Date: 02/02/2022 15:07 Ordering Phys: Tavon Mclain DO Technologist: Exam Location: [facility] [place] Indication: Enlarged heart BP: 135 / 75 HR: 73 Rhythm: Sinus Technical Quality: Adequate MEASUREMENTS (Male / Female) Normal Values 2D ECHO LV Diastolic Diameter PLAX 4.3 cm 4.2 - 5.9 / 3.9 - 5.3 cm LV Systolic Diameter PLAX 2.4 cm IVS Diastolic Thickness 1.0 cm 0.6 - 1.0 / 0.6 - 0.9 cm IVS Systolic Thickness 1.4 cm LVPW Diastolic Thickness 1.2 cm 0.6 - 1.0 / 0.6 - 0.9 cm LVPW Systolic Thickness 1.3 cm LVOT Diameter 2.0 cm LV Ejection Fraction 2D Teich 75.1 % LV Ejection Fraction MOD 2C 74.9 % LV Ejection Fraction 2C AL 78.5 % LA Diameter 4.7 cm Aorta at Sinotubular Diameter 2.6 cm M-MODE Aortic Annulus Diameter 3.4 cm LA Ao Ratio MM 1.4 MV E Point Septal Separation 0.6 cm DOPPLER AV Peak Velocity 136.0 cm/s LVOT Peak Velocity 131.0 cm/s AV Area Cont Eq vti 3.6 cm squared AV Area Cont Eq pk 3.2 cm squared MV Area PHT 5.0 cm squared Mitral E to A Ratio 0.9 MV E' Velocity 46.0 cm/s Mitral E to MV E' Ratio 8.6 Mitral E to LV E' Lateral Ratio 7.7 Mitral E to LV E' Septal Ratio 9.8 TR Peak Velocity 208.0 cm/s TR Peak Gradient 17.3 mmHg TV Peak E Velocity 88.0 cm/s Right Atrial Pressure 3.0 mmHg Pulmonary Artery Systolic Pressu 20.3 mmHg PV Peak Velocity 119.0 cm/s FINDINGS Left Ventricle Normal left ventricular size, systolic function and wall thickness, with no regional wall motion abnormalities. Left ventricular ejection fraction is estimated at 70 %. Normal diastolic function. Right Ventricle Normal right ventricular size and systolic function. Right ventricular systolic pressure 30 mmHg. Right Atrium Normal right atrial size. Left Atrium Moderately increased left atrial size. Mitral Valve Mild mitral annular calcification. Mildly thickened mitral valve. No mitral valve stenosis. Mild to moderate mitral valve regurgitation. Aortic Valve Mildly thickened trileaflet aortic valve. No aortic valve stenosis. No aortic valve regurgitation. Tricuspid Valve Structurally normal tricuspid valve. Trace to mild tricuspid valve regurgitation. Pulmonic Valve Structurally normal pulmonic valve. No pulmonary valve stenosis. Mild pulmonary valve regurgitation. Pericardium Trivial pericardial effusion. Aorta Normal size aortic root and proximal ascending aorta. IVC Inferior vena cava not visualized. CONCLUSIONS 1. Normal left ventricular size, systolic function and wall thickness, with no regional wall motion abnormalities. Left ventricular ejection fraction is estimated at 70 %. Normal diastolic function. 2. Moderately increased left atrial size. 3. Mild to moderate mitral valve regurgitation. 4. Mild pulmonary hypertension with pulmonary artery pressure estimated at 30 mmHg. 5. When compared to previous echocardiogram report dated 07/11/2019, there seems to be mild to moderate mitral valve regurgitation now. Lisa Guerra MD (Electronically Signed) Final Date: 04 Feb 2022 16:35 S
== END 2022-02-02 14:50 | disposition home or self-care (01) ==
PROVIDERS: PCP Family Medicine; Visit Provider Electrodiagnostic Medicine
DX: I38 Endocarditis, valve unspecified (principal); I34.0 Nonrheumatic mitral (valve) insufficiency
CPT/HCPCS: 93306

== ENCOUNTER → 2022-03-08 09:51 | Outpatient (BNVA) | payer MEDICARE, OTHER, SELFPAY | PROVIDERS: PCP Family Medicine; Referring Provider Family Medicine; Visit Provider Specialist | DX: M17.0 Bilateral primary osteoarthritis of knee (principal) | CPT/HCPCS: 73560; 73565; 99204 ==

== ENCOUNTER 2022-05-02 18:33 | Emergency (ER) | payer MEDICARE, OTHER, SELFPAY ==
[2022-05-02 19:22] VITALS: BP 178/81; PULSE 92; RESP 16; TEMP 37.6; O2SAT 96
[2022-05-02 20:00] VITALS: BP 144/60; PULSE 65; RESP 18; O2SAT 94
--- NOTE | 2022-05-02 21:56 | CTR_ITS ---
PROCEDURE INFORMATION: Exam: CT Abdomen And Pelvis With Contrast Exam date and time: 05/02/2022 10:56 PM Age: 86 years old Clinical indication: Abdominal pain; Generalized; Additional info: Abd pain TECHNIQUE: Imaging protocol: Computed tomography of the abdomen and pelvis with contrast. Radiation optimization: All CT scans at this facility use at least one of these dose optimization techniques: automated exposure control; mA and/or kV adjustment per patient size (includes targeted exams where dose is matched to clinical indication); or iterative reconstruction. Contrast material: OMNI 350; Contrast volume: 80 ml; Contrast route: INTRAVENOUS (IV); COMPARISON: US gall bladder [id number] 02/23/2019 12:28 PM RADIATION DOSE METRICS: Total DLP (mGy-cm): 393.05 FINDINGS: Heart: Cardiomegaly. Diaphragm: Small hiatal hernia. Liver: Calcified granulomas in the liver. Hypodensities in the liver are too small to characterize but are most likely cysts. Gallbladder and bile ducts: Small amount of layering sludge in the gallbladder. No gallbladder wall thickening. The bile ducts are normal. Pancreas: Normal. No ductal dilation. Spleen: Calcified granulomas in the spleen. 1.4 cm probable cyst in the spleen, Hounsfield units 20. Adrenal glands: Normal. No mass. Kidneys and ureters: Severe atrophy of the right kidney. Bilateral renal cysts, Hounsfield units less than 20. Additional hypodense lesions in both kidneys are too small to characterize but are most likely cysts. No follow-up imaging recommended. No calculus or hydronephrosis. Stomach and bowel: The stomach is decompressed. No wall thickening. Diverticulosis of the colon. Mild fat stranding surrounding a diverticulum in the anterior distal descending colon, consistent with mild acute diverticulitis. Remainder of the colon is unremarkable. Mild fecalization of the terminal ileum is consistent with mild stasis. The small bowel is otherwise unremarkable. No obstruction. Appendix: The appendix is not visualized. No secondary signs of appendicitis. Intraperitoneal space: Unremarkable. No free air. No significant fluid collection. Vasculature: Dense arterial calcifications. No aneurysm. Lymph nodes: Unremarkable. No enlarged lymph nodes. Urinary bladder: Unremarkable as visualized. Reproductive: The uterus and ovaries are unremarkable. Bones/joints: Mild superior T12 compression fracture, likely chronic. Soft tissues: Small fat containing umbilical hernia. CT/CT abdomen pelvis w con* [id number] IMPRESSION: 1. Mild acute diverticulitis in the anterior distal descending colon. COMMENTS: Consistent with the [employer]'s Incidental Findings Committee white paper (J Am Tylor Radiol 2018): Any incidental renal lesion less than 1 cm or classified as too small to characterize, or any incidental cystic renal lesion characterized as simple-appearing, is likely benign. No follow-up imaging is recommended for these lesions per consensus recommendations based on imaging criteria.
[2022-05-02 22:10] LABS: Basophils % 0.3 %; Eosinophils # 0.1 10^3/uL (0.0-0.8); Eosinophils % 0.4 %; Hematocrit 42.3 % (37.0-47.0); Hemoglobin 13.4 g/dL (11.5-15.3); Lymphocytes # 2.8 10^3/uL (0.8-4.8); Mean Corpuscular HGB Conc 31.7 g/dL (30.0-36.0); Mean Corpuscular Hemoglobin 26.7 pg (28.0-34.0); Mean Corpuscular Volume 84.4 fl (81-99); Monocytes # 0.9 10^3/uL (0.2-0.9); Monocytes % 6.3 %; Neutrophils # 10.01 10^3/uL (1.8-7.7); Neutrophils % 72.3 %; Nucleated Red Blood Cells % 0 %; Platelet Count 264 10^3/cmm (130-400); Red Blood Count 5.01 10^6/uL (4.1-5.3); Red Cell Distribution Width 13.3 % (12.1-15.1); White Blood Count 13.8 10^3/uL (4.0-10.0)
--- NOTE | 2022-05-02 22:10 | PC.NURSE ---
assumed care of patient at this time.
--- NOTE | 2022-05-02 22:11 | PC.NURSE ---
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 tolerated exam well.
--- NOTE | 2022-05-02 22:18 | ED_ITS ---
Documented by User: Min Sanches MD 05/05/22 17:05 HPI - General Adult General: Chief complaint: Abdominal Pain Stated complaint: abd pain Time Seen by Provider: 05/02/22 21:56 History of Present Illness: Patient is an 86-year-old female with history of mildly prolapsed bladder presents to the emergency with complaints of lower abdominal pain. Patient says that she has been having abdominal pain since 230 this afternoon. Patient was sitting down when this all started. He denies any trauma or injury. Denies any nausea/vomiting fever/chills, dysuria symptoms, or new vaginal discharge or bleeding. Patient denies any melena/hematochezia. Patient denies any cough, runny nose sore throat, chest pain shortness of breath or palpitation. Onset:2:30pm Duration:ongoing Location:home Severity:moderate Associated symptoms: Deny chest pain, dyspnea, nausea, rash, palpitations or vomiting Review of Systems Const: Denies: fever(s) or chills Eyes: Denies: change in vision ENMT: Denies: mouth pain Card: Denies: chest pain or palpitations Resp: Denies: dyspnea or non-productive cough GI: Reports: abdominal pain (+lower abd pain); Denies: nausea, vomiting or diarrhea : Denies: dysuria Musc: Denies: extremity pain Skin/Breast: Denies: rash or new lesions Neuro: Denies: weakness in extremities Psych: Reports: other (Normal mood) Levon/Lymph: Denies: easy bruising PFSH ED PFSH: Medical History Cystocele History of COVID-19 HTN (hypertension) Hx of breast cancer Hypothyroidism Recurrent UTI Urgency incontinence Surgical History H/O arthroscopy of left knee H/O arthroscopy of right knee H/O mastectomy LEFT H/O tubal ligation Family History Sister CAD (coronary artery disease) Cancer Heart disease Brother CAD (coronary artery disease) Cancer Heart disease Father Cancer Stroke Mother Heart disease Blood clots in brain Denies family history of Diabetes Thyroid disease Social History (Reviewed 05/05/22 @ 14:00 by CHANDA Huerta Smoking and tobacco status: never smoked Alcohol intake: never Marital status: / Current occupational status: retired History of recent travel: No Female Reproductive History: Spontaneous abortions: No Physical Exam Const: COMMON NORMALS: alert HENMT: COMMON NORMALS: atraumatic HEAD & SCALP: atraumatic MOUTH: moist mucous membranes not abnormal Eye: COMMON NORMALS: EOMs intact bilaterally and conjunctivae normal CONJUNCTIVA: Yes conjunctivae normal Neck/C-Spine: COMMON NORMALS: full ROM and supple Resp: COMMON NORMALS: normal respiratory effort and clear to auscultation bilaterally AUSCULTATION: clear to auscultation bilaterally Cardio: COMMON NORMALS: regular rate RATE: regular rate GI: COMMON NORMALS: Soft to palpation PALPATION: Yes Soft to palpation OTHER: +mild lower b/l TTP. NO guarding rebound, guarding, rigidity. No CVA tenderness to percussion. Neg Jones/Neg McBurney's point tenderness, no suprabupic tenderness to palpation. : OTHER: EXAM supervised by GELA Fu: No signs of protruding bladder, no visible external lesion of the vagina Extremity: COMMON NORMALS: full ROM Neuro: SENSORIUM/ORIENTATION: Yes alert MOTOR EXAM: No Abnormal motor strength present and Other motor observations present (no focal motor deficits) Psych: COMMON NORMALS: speech normal SPEECH: Yes normal speech MOOD & AFFECT: Yes euthymic mood Course Vital Signs: Vital signs: Vital Signs Temperature 98.4 F 05/03/22 00:13 Pulse Rate 69 05/03/22 00:15 Respiratory Rate 20 H 05/03/22 00:15 Blood Pressure 149/65 05/03/22 00:15 Pulse Oximetry 93 05/03/22 00:15 Oxygen Delivery Me thod 05/03/22 00:15 MDM - General Adult Medical Decision Making 86-year-old female with history of bladder prolapse presenting to the emergency room with concerns of lower abdominal pain since 230 today. On exam, patient is hemodynamically stable with mild tenderness palpation of the lower quadrants. Patient with no guarding or rebound tenderness. White count 13.[address] showed diverticulitis her pain is improved her exam is benign we will start her on Cipro and Flagyl she is to follow-up with her PCP and return if worsening she understands agrees to plan. Lab Data : 05/02/22 22:00 05/02/22 22:00 Radiology Impressions Abdomen/Pelvis CT 05/02/22 21:56 IMPRESSION: 1. Mild acute diverticulitis in the anterior distal descending colon. COMMENTS: Consistent with the [employer]'s Incidental Findings Committee white paper (J Am Tylor Radiol 2018): Any incidental renal lesion less than 1 cm or classified as too small to characterize, or any incidental cystic renal lesion characterized as simple-appearing, is likely benign. No follow-up imaging is recommended for these lesions per consensus recommendations based on imaging criteria. Laboratory Results WBC 13.8 10^3/uL (4.0-10.0) H 05/02/22 22:00 RBC 5.01 10^6/uL (4.1-5.3) 05/02/22 22:00 Hgb 13.4 g/dL (11.5-15.3) 05/02/22 22:00 Hct 42.3 % (37.0-47.0) 05/02/22 22:00 MCV 84.4 fl (81-99) 05/02/22 22:00 MCH 26.7 pg (28.0-34.0) L 05/02/22 22:00 MCHC 31.7 g/dL (30.0-36.0) 05/02/22 22:00 RDW 13.3 % (12.1-15.1) 05/02/22 22:00 Plt Count 264 10^3/cmm (130-400) 05/02/22 22:00 MPV 10.0 fL (7.4-10.4) 05/02/22 22:00 Neut % (Auto) 72.3 % 05/02/22 22:00 Lymph % (Auto) 20.0 % 05/02/22 22:00 [place]oshone % (Auto) 6.3 % 05/02/22 22:00 Eos % (Auto) 0.4 % 05/02/22 22:00 Baso % (Auto) 0.3 % 05/02/22 22:00 Neut # (Auto) 10.01 10^3/uL (1.8-7.7) H 05/02/22 22:00 Lymph # (Auto) 2.8 10^3/uL (0.8-4.8) 08/14/22 22:00 [place]oshone # (Auto) 0.9 10^3/uL (0.2-0.9) 05/02/22 22:00 Eos # (Auto) 0.1 10^3/uL (0.0-0.8) 05/02/22 22:00 Baso # (Auto) 0.0 10^3/uL (0.0-0.1) 05/02/22 22:00 Nucleated RBC % (auto) 0 % 05/02/22 22:00 Nucleated RBCs # 0.0 /100WBC 05/02/22 22:00 Sodium 139 mmol/L (136-145) 05/02/22 22:00 Potassium 4.0 mmol/L (3.5-5.1) 05/02/22 22:00 Chloride 98 mmol/L (98-107) 05/02/22 22:00 Carbon Dioxide 28 mmol/L (22-29) 05/02/22 22:00 Anion Gap 17.0 (5-19) 05/02/22 22:00 BUN 21 mg/dL (8-23) 05/02/22 22:00 Creatinine 1.1 mg/dL (0.5-0.9) H 05/02/22 22:00 GFR Calculation Not Reportable 05/02/22 22:00 Glucose 164 mg/dL (65-115) H 05/02/22 22:00 Calculated Osmolality 295 mOsm/kg (285-295) 05/02/22 22:00 Calcium 9.8 mg/dL (8.5-10.5) 05/02/22 22:00 Total Bilirubin 0.3 mg/dL (0.15-1.2) 05/02/22 22:00 AST 20 U/L (0-32) 05/02/22 22:00 ALT 12 U/L (0-33) 05/02/22 22:00 Alkaline Phosphatase 90 IU/L (35-105) 05/02/22 22:00 Total Protein 7.6 g/dL (6.6-8.7) 05/02/22 22:00 Albumin 4.5 g/dL (3.5-5.2) 05/02/22 22:00 Globulin 3.1 g/dL (1.3-4.6) 05/02/22 22:00 Lipase 55 U/L (13-60) 05/02/22 22:00 Discharge Plan Discharge Patient Disposition: Home Clinical Impression: Abdominal pain, Diverticulitis Condition: Stable Prescriptions: New metronidazole 500 mg tablet 500 mg PO Q8H 7 Days Qty: 21 0RF Cipro 500 mg tablet 500 mg PO BID Qty: 14 0RF ondansetron 4 mg tablet,disintegrating 4 mg PO Q6H PRN (Reason: nausea and vomiting) Qty: 14 0RF No Action ascorbic acid (vitamin C) 1,000 mg tablet 1 gm PO DAILY losartan-hydrochlorothiazide 100-25 mg tablet 1 tab PO DAILY 90 Days Qty: 90 1RF amlodipine 10 mg tablet 10 mg PO DAILY 90 Days Qty: 90 1RF levothyroxine 75 mcg tablet 75 mcg PO DAILY 90 Days Qty: 90 1RF tamsulosin [Flomax] 0.4 mg capsule 0.4 mg PO DAILY 14 Days Qty: 14 0RF meloxicam 7.5 mg tablet 7.5 mg PO DAILY 30 Days Qty: 30 2RF Rx Instructions: WITH FOOD meloxicam 7.5 mg tablet 7.5 mg PO DAILY Qty: 30 0RF ofloxacin 0.3 % drops 10 drp otic (ear) BID Qty: 5 1RF sulfamethoxazole-trimethoprim [Bactrim DS] 800-160 mg tablet 1 tab PO Q12H 3 Days Qty: 6 0RF Multi For Her 50 Plus 400-80 mcg Capsule 400 cap PO DAILY vitamin E 400 unit Capsule 400 unit PO DAILY Calcium 600 + D(3) 600 mg calcium- 200 unit capsule PO BID Discharge Orders: Discharge ED (Routine); Ordered 05/02/22 Ordered By: Salty King Referrals: Sharmin Monique MD [Primary Care Provider] - 1-3 days Discharge Diet: Advance as tolerated Discharge Activity: Resume usual activity Patient Instructions: Diverticulitis (ED), Abdominal Pain (ED) Coding Level of Care Code ED Silverware Assembler for g Fwd Exam Comprehensive Documented by User: Salty King MD 05/03/22 00:10 HPI - General Adult General: Chief complaint: Abdominal Pain Stated complaint: abd pain Time Seen by Provider: 05/02/22 21:56 [facility] ED PFSH: Medical History Cystocele History of COVID-19 HTN (hypertension) Hx of breast cancer Hypothyroidism Recurrent UTI Urgency incontinence Surgical History H/O arthroscopy of left knee H/O arthroscopy of right knee H/O mastectomy LEFT H/O tubal ligation Family History Sister CAD (coronary artery disease) Cancer Heart disease Brother CAD (coronary artery disease) Cancer Heart disease Father Cancer Stroke Mother Heart disease Blood clots in brain Denies family history of Diabetes Thyroid disease Social History Smoking and tobacco status: never smoked Alcohol intake: never Marital status: / Current occupational status: retired History of recent travel: No Course Vital Signs: Vital signs: Vital Signs Temperature 98.4 F 05/03/22 00:13 Pulse Rate 69 05/03/22 00:15 Respiratory Rate 20 H 05/03/22 00:15 Blood Pressure 149/65 05/03/22 00:15 Pulse Oximetry 93 05/03/22 00:15 Oxygen Delivery Me thod 05/03/22 00:15 [facility] - General Adult Medical Decision Making 86-year-old female with history of bladder prolapse presenting to the emergency room with concerns of lower abdominal pain since 230 today. On exam, patient is hemodynamically stable with mild tenderness palpation of the lower quadrants. Patient with no guarding or rebound tenderness. White count 13.[address] showed diverticulitis her pain is improved her exam is benign we will start her on Cipro and Flagyl she is to follow-up with her PCP and return if worsening she understands agrees to plan. Lab Data : 05/02/22 22:00 05/02/22 22:00 Radiology Impressions Abdomen/Pelvis CT 05/02/22 21:56 IMPRESSION: 1. Mild acute diverticulitis in the anterior distal descending colon. COMMENTS: Consistent with the [place] [employer]'s Incidental Findings Committee white paper (J Am Tylor Radiol 2018): Any incidental renal lesion less than 1 cm or classified as too small to characterize, or any incidental cystic renal lesion characterized as simple-appearing, is likely benign. No follow-up imaging is recommended for these lesions per consensus recommendations based on imaging criteria. Laboratory Results WBC 13.8 10^3/uL (4.0-10.0) H 05/02/22 22:00 RBC 5.01 10^6/uL (4.1-5.3) 05/02/22 22:00 Hgb 13.4 g/dL (11.5-15.3) 05/02/22 22:00 Hct 42.3 % (37.0-47.0) 05/02/22 22:00 MCV 84.4 fl (81-99) 05/02/22 22:00 MCH 26.7 pg (28.0-34.0) L 05/02/22 22:00 MCHC 31.7 g/dL (30.0-36.0) 05/02/22 22:00 RDW 13.3 % (12.1-15.1) 05/02/22 22:00 Plt Count 264 10^3/cmm (130-400) 05/02/22 22:00 MPV 10.0 fL (7.4-10.4) 05/02/22 22:00 Neut % (Auto) 72.3 % 05/02/22 22:00 Lymph % (Auto) 20.0 % 05/02/22 22:00 [place] % (Auto) 6.3 % 05/02/22 22:00 Eos % (Auto) 0.4 % 05/02/22 22:00 Baso % (Auto) 0.3 % 05/02/22 22:00 Neut # (Auto) 10.01 10^3/uL (1.8-7.7) H 05/02/22 22:00 Lymph # (Auto) 2.8 10^3/uL (0.8-4.8) 05/02/22 22:00 [place] # (Auto) 0.9 10^3/uL (0.2-0.9) 05/02/22 22:00 Eos # (Auto) 0.1 10^3/uL (0.0-0.8) 05/02/22 22:00 Baso # (Auto) 0.0 10^3/uL (0.0-0.1) 05/02/22 22:00 Nucleated RBC % (auto) 0 % 05/02/22 22:00 Nucleated RBCs # 0.0 /100WBC 05/02/22 22:00 Sodium 139 mmol/L (136-145) 05/02/22 22:00 Potassium 4.0 mmol/L (3.5-5.1) 05/02/22 22:00 Chloride 98 mmol/L (98-107) 05/02/22 22:00 Carbon Dioxide 28 mmol/L (22-29) 05/02/22 22:00 Anion Gap 17.0 (5-19) 05/02/22 22:00 BUN 21 mg/dL (8-23) 05/02/22 22:00 Creatinine 1.1 mg/dL (0.5-0.9) H 05/02/22 22:00 GFR Calculation Not Reportable 05/02/22 22:00 Glucose 164 mg/dL (65-115) H 05/02/22 22:00 Calculated Osmolality 295 mOsm/kg (285-295) 05/02/22 22:00 Calcium 9.8 mg/dL (8.5-10.5) 05/02/22 22:00 Total Bilirubin 0.3 mg/dL (0.15-1.2) 05/02/22 22:00 AST 20 U/L (0-32) 05/02/22 22:00 ALT 12 U/L (0-33) 05/02/22 22:00 Alkaline Phosphatase 90 IU/L (35-105) 05/02/22 22:00 Total Protein 7.6 g/dL (6.6-8.7) 05/02/22 22:00 Albumin 4.5 g/dL (3.5-5.2) 05/02/22 22:00 Globulin 3.1 g/dL (1.3-4.6) 05/02/22 22:00 Lipase 55 U/L (13-60) 05/02/22 22:00 Discharge Plan Discharge Patient Disposition: Home Clinical Impression: Abdominal pain, Diverticulitis Condition: Stable Prescriptions: New metronidazole 500 mg tablet 500 mg PO Q8H 7 Days Qty: 21 0RF Cipro 500 mg tablet 500 mg PO BID Qty: 14 0RF ondansetron 4 mg tablet,disintegrating 4 mg PO Q6H PRN (Reason: nausea and vomiting) Qty: 14 0RF No Action ascorbic acid (vitamin C) 1,000 mg tablet 1 gm PO DAILY losartan-hydrochlorothiazide 100-25 mg tablet 1 tab PO DAILY 90 Days Qty: 90 1RF amlodipine 10 mg tablet 10 mg PO DAILY 90 Days Qty: 90 1RF levothyroxine 75 mcg tablet 75 mcg PO DAILY 90 Days Qty: 90 1RF tamsulosin [Flomax] 0.4 mg capsule 0.4 mg PO DAILY 14 Days Qty: 14 0RF meloxicam 7.5 mg tablet 7.5 mg PO DAILY 30 Days Qty: 30 2RF Rx Instructions: WITH FOOD meloxicam 7.5 mg tablet 7.5 mg PO DAILY Qty: 30 0RF ofloxacin 0.3 % drops 10 drp otic (ear) BID Qty: 5 1RF sulfamethoxazole-trimethoprim [Bactrim DS] 800-160 mg tablet 1 tab PO Q12H 3 Days Qty: 6 0RF Multi For Her 50 Plus 400-80 mcg Capsule 400 cap PO DAILY vitamin E 400 unit Capsule 400 unit PO DAILY Calcium 600 + D(3) 600 mg calcium- 200 unit capsule PO BID Discharge Orders: Discharge ED (Routine); Ordered 05/02/22 Ordered By: Salty King Referrals: Sharmin Monique MD [Primary Care Provider] - 1-3 days Discharge Diet: Advance as tolerated Discharge Activity: Resume usual activity Patient Instructions: Diverticulitis (ED), Abdominal Pain (ED) Coding Level of Care Code ED Silverware Assembler for Chg Fwd Exam Comprehensive
[2022-05-02 22:34] LABS: Alanine Aminotransferase 12 U/L (0-33); Albumin Level 4.5 g/dL (3.5-5.2); Alkaline Phosphatase 90 IU/L (35-105); Aspartate Amino Transferase 20 U/L (0-32); Blood Urea Nitrogen 21 mg/dL (8-23); Calcium 9.8 mg/dL (8.5-10.5); Carbon Dioxide 28 mmol/L (22-29); Chloride 98 mmol/L (98-107); Globulin 3.1 g/dL (1.3-4.6); Glucose 164 mg/dL (65-115); Lipase 55 U/L (13-60); Osmolality Calculated 295 mOsm/kg (285-295); Sodium 139 mmol/L (136-145); Total Bilirubin 0.3 mg/dL (0.15-1.2); Total Protein 7.6 g/dL (6.6-8.7)
[2022-05-02] MEDS: diphenhydrAMINE 50 mg/mL SDV 1mL IVP (22:34)
[2022-05-02] MEDS: iohexol 350 mg/mL 100 mL Btl IV (23:39)
--- NOTE | 2022-05-02 23:52 | PC.NURSE ---
patient refused tylenol, states 'im not having pain, its just a tenderness on my bladder, im just gonna hold off , denies further needs.
[2022-05-03] MEDS: metroNIDAZOLE 500 MG Tablet PO (00:12)
[2022-05-03] MEDS: ciprofloxacin 500 mg Tablet PO (00:12)
[2022-05-03 00:13] VITALS: BP 149/65; PULSE 72; RESP 18; TEMP 36.9; O2SAT 94
[2022-05-03 00:15] VITALS: BP 149/65; PULSE 69; RESP 20; O2SAT 93
== END 2022-05-03 00:20 | disposition home or self-care (01) ==
PROVIDERS: Emergency Provider Emergency Medicine; PCP Family Medicine
DX: K57.92 Diverticulitis of intestine, part unspecified, without perforation or abscess without bleeding (principal); I10 Essential (primary) hypertension; Z85.3 Personal history of malignant neoplasm of breast
CPT/HCPCS: 74177; 80053; 83690; 85025; 96374; 96375; 99285; J1200; J2930; Q9967

== ENCOUNTER → 2022-05-17 10:29 | Outpatient (BNVA) | payer MEDICARE, OTHER, SELFPAY | PROVIDERS: PCP Family Medicine; Visit Provider Family Medicine | DX: I10 Essential (primary) hypertension (principal); E03.9 Hypothyroidism, unspecified; K57.92 Diverticulitis of intestine, part unspecified, without perforation or abscess without bleeding; M17.0 Bilateral primary osteoarthritis of knee; E11.65 Type 2 diabetes mellitus with hyperglycemia | CPT/HCPCS: 80053; 83036; 84443; 85025 ==

== ENCOUNTER 2022-10-15 08:44 | Outpatient (CLI) | payer MEDICARE, OTHER, SELFPAY ==
--- NOTE | 2022-10-15 08:57 | MM_ITS ---
WS: [email or web address] VIEWS: MLO, CC, and ML views right breast. 3D digital tomosynthesis is also included in this exam. Comparison made with prior exam of 04/30/2016, 05/03/2017, 05/08/2018, 05/09/2019, 08/05/2020, 10/01/2021. . Findings: There are scattered stable appearing nodular densities throughout the right breast. Benign-appearing calcifications. No architectural distortion or tumor calcification seen. Scattered fibroglandular de nsities MM/[place] [id number] Impression: BI-RADS: 2-Benign FOLLOW-UP: 1 Year Follow-up This mammogram was also analyzed by the Computer Aided Detection System R2 Imag e Help Desk Engineer.
== END 2022-10-15 08:45 | disposition home or self-care (01) ==
LOC: RAD 08:51
PROVIDERS: PCP Family Medicine; Visit Provider Family Medicine
DX: Z85.3 Personal history of malignant neoplasm of breast (principal)
CPT/HCPCS: 77061; G0279

== ENCOUNTER → 2022-11-15 11:02 | Outpatient (BNVA) | payer MEDICARE, OTHER, SELFPAY | PROVIDERS: PCP Family Medicine; Visit Provider Family Medicine | DX: E11.9 Type 2 diabetes mellitus without complications (principal); E03.9 Hypothyroidism, unspecified; Z13.220 Encounter for screening for lipoid disorders; I10 Essential (primary) hypertension; N39.0 Urinary tract infection, site not specified | CPT/HCPCS: 80053; 80061; 81000; 83036; 84443; 87077; 87086; 87184 ==

== ENCOUNTER 2023-03-09 16:22 | Observation (INO) | payer MEDICARE, OTHER, SELFPAY ==
[2023-03-07 11:21] LABS: Basophils % 0.3 %; Eosinophils # 0.1 10^3/uL (0.0-0.8); Eosinophils % 1.4 %; Lymphocytes # 1.8 10^3/uL (0.8-4.8); Lymphocytes % 22.8 %; Mean Corpuscular HGB Conc 31.6 g/dL (30.0-36.0); Mean Corpuscular Hemoglobin 26.3 pg (28.0-34.0); Mean Corpuscular Volume 83.3 fl (81-99); Mean Platelet Volume 9.9 fL (7.4-10.4); Monocytes # 0.6 10^3/uL (0.2-0.9); Monocytes % 7.4 %; Neutrophils # 5.23 10^3/uL (1.8-7.7); Neutrophils % 67.6 %; Nucleated Red Blood Cells % 0 %; Platelet Count 265 10^3/cmm (130-400); Red Blood Count 4.56 10^6/uL (4.1-5.3); Red Cell Distribution Width 13.2 % (12.1-15.1); White Blood Count 7.7 10^3/uL (4.0-10.0)
--- NOTE | 2023-03-07 11:25 | ECG_ITS ---
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 Measurements Intervals [place] Rate: 63 P: 55 UT: 209 QRS: 8 QRSD: 98 T: 40 QT: 416 QTc: 426 Interpretive Statements SINUS RHYTHM Compared to ECG 02/23/2019 21:03:19 No significant changes Electronically Signed On 03-07-2023 17:26:14 CDT by Taz Delaney M.D. [id number]
[2023-03-07 11:35] LABS: Alanine Aminotransferase 11 U/L (0-33); Albumin Level 4.4 g/dL (3.5-5.2); Alkaline Phosphatase 80 U/L (35-105); Anion Gap 14.9 (5-19); Aspartate Amino Transferase 16 U/L (0-32); Blood Urea Nitrogen 27 mg/dL (8-23); Calcium 9.7 mg/dL (8.5-10.5); Carbon Dioxide 29 mmol/L (22-29); Chloride 98 mmol/L (98-107); Glucose 131 mg/dL (65-115); Osmolality Calculated 293 mOsm/kg (285-295); Potassium 3.9 mmol/L (3.5-5.1); Sodium 138 mmol/L (136-145); Total Bilirubin 0.4 mg/dL (0.15-1.2); Total Protein 7.4 g/dL (6.6-8.7)
[2023-03-07 12:11] LABS: Add Urine Microscopic? YES; Bilirubin Urine Neg (Negative); Blood Urine 2+ (Negative); Glucose Urine UA Norm (Normal); Ketones Urine Negative (Negative); Leukocyte Esterase Urine 2+ (Negative); Nitrate Urine Positive (Negative); Protein Urine 1+ (Negative); Urine Appearance SL Hazy (CLEAR); Urine Color Light yellow (Yellow); Urobilinogen Urine Norm (Negative); pH Urine 7 (5-7)
[2023-03-07 12:12] LABS: Add Urine Culture? Yes; Bacteria Urine 3+ /hpf; RBC Urine 0-4 /hpf (0-2); Squamous Epithelial Cell Urine 0-4 /hpf (0-5); Transitional Epi Cells Urine 0-4 /hpf; WBC Urine 15-25 /hpf (0-5)
--- NOTE | 2023-03-07 12:31 | ANES.PREANE2 ---
Pre-Anesthetic Assessment Height/Weight: Height 1.57 m Weight 60.781 kg Operation Date: 03/09/23 12:35 Proposed Procedures p [Total vaginal hysterectomy 61098, Anterior and posterior colporrhaphy 88711], N81.3(Not Applicable) - Magen Sousa MD s Anterior Repair Anterior Colporrhaphy(Not Applicable) - Magen Sousa MD s Posterior Repair Posterior Colporrhaphy(Not Applicable) - Magen Sousa MD Familial anesthetic complications: none Was Beta Thang taken within 24 hours: N/A Was Clonidine taken within 24 hours: Yes Social No alcohol and No tobacco Exam alert, oriented x 3, clear to auscultation bilaterally and regular rate & rhythm Airway Submandibular: within normal limits Cervical ROM: within normal limits Mallampati: Class II Dentition: chipped CV/HEM Hypertension GI Gastroesophageal Reflux Disease Metabolic Diabetes Mellitus and Thyroid Disease Anesthetic Plan ASA status: 2 Anesthesia: General Medications/Allergies Home Medications Medication Instructions Recorded Confirmed Last Taken Type vitamin E 268 mg (400 unit) capsule 400 unit PO DAILY 10/06/19 03/07/23 03/07/23 History ascorbic acid (vitamin C) 1,000 mg 1 gm PO DAILY 07/17/20 03/07/23 03/07/23 History tablet calcium carbonate 600 mg-vitamin cap PO BID 07/17/20 03/07/23 03/07/23 History D3 5 mcg (200 unit) capsule (Calcium 600 + D(3)) amlodipine 10 mg tablet 10 mg PO DAILY 90 days #90 tabs 11/15/22 03/07/23 03/07/23 Rx levothyroxine 75 mcg tablet 75 mcg PO DAILY 90 days #90 tabs 11/15/22 03/07/23 03/07/23 Rx losartan 100 1 tab PO DAILY 90 days #90 tabs 11/15/22 03/07/23 03/07/23 Rx mg-hydrochlorothiazide 25 mg tablet metformin 500 mg tablet,extended 500 mg PO DAILY 90 days #90 tabs 11/15/22 03/07/23 03/07/23 Rx release 24 hr clonidine HCl 0.1 mg tablet 0.1 mg PO BID PRN high blood 02/09/23 03/07/23 Unknown Rx pressure 90 days #180 tabs famotidine 40 mg tablet 40 mg PO .at bedtime PRN 02/09/23 03/07/23 03/07/23 Rx heartburn/nausea 30 days #30 tabs Allergies Allergy/AdvReac Type Severity Reaction Status Date / Time lisinopril Allergy Mild Unknown Verified 03/07/23 09:02 chocolate flavor Allergy ADR-Hyperte Verified 03/07/23 09:02 nsion Iodinated Contrast Media Allergy ALGY-Rash Verified 03/07/23 09:02 oxycodone Allergy Unknown Verified 03/07/23 09:02 [facility] Anesthesia Medical History Anxiety Cystocele Diabetes History of COVID-19 HTN (hypertension) Hx of breast cancer Hypothyroidism Recurrent UTI Tinnitus Urgency incontinence Surgical History H/O arthroscopy of left knee H/O arthroscopy of right knee H/O mastectomy LEFT H/O tubal ligation Family History Sister CAD (coronary artery disease) Cancer Heart disease Brother CAD (coronary artery disease) Cancer Heart disease Father Cancer Stroke Mother Heart disease Blood clots in brain Denies family history of Diabetes Thyroid disease Social History Smoking and tobacco status: never smoked Alcohol intake: never Substance/Drug Use: never Marital status: / Current occupational status: retired Female Reproductive History Spontaneous abortions: No Data Anesthesia 03/07/23 11:04 03/07/23 11:04 Short CBC 03/07/23 Range/Units 11:04 WBC 7.7 (4.0-10.0) 10^3/uL Hgb 12.0 (11.5-15.3) g/dL Hct 38.0 (37.0-47.0) % MCV 83.3 (81-99) fl Plt Count 265 (130-400) 10^3/cmm Neut % (Auto) 67.6 % Neut # (Auto) 5.23 (1.8-7.7) 10^3/uL BMP 03/07/23 11:04 Sodium 138 Potassium 3.9 Chloride 98 Carbon Dioxide 29 BUN 27 H Creatinine 1.4 H Glucose 131 H Calcium 9.7 Liver Function 03/07/23 Range/Units 11:04 Total Bilirubin 0.4 (0.15-1.2) mg/dL AST 16 (0-32) U/L ALT 11 (0-33) U/L Alkaline Phosphatase 80 (35-105) U/L Albumin 4.4 (3.5-5.2) g/dL Urine 03/07/23 Range/Units 11:04 Urine Color Light yellow (Yellow) Urine Appearance Sl hazy A (CLEAR) Urine pH 7 (5-7) Ur Specific [place] 1.030 (1.005-1.030) Urine Protein 1+ H (Negative) Urine Glucose (UA) Norm (Normal) Urine Ketones Negative (Negative) Urine Nitrate Positive H (Negative) Urine Bilirubin Neg (Negative) Ur Leukocyte Esterase 2+ H (Negative) Urine RBC 0-4 H (0-2) /hpf Urine WBC 15-25 H (0-5) /hpf Blood Bank 03/07/23 11:04 Blood Type A Negative Rho(D) Type Negative Antibody Screen Positive Cardiac Studies: Echocardiogram 02/02/22
[2023-03-09] VITALS (13 sets, daily range): BP systolic 149–188; BP diastolic 58–97; PULSE 66–75; RESP 16–18; TEMP 36.6–36.8; O2SAT 92–100
[2023-03-09 11:06] LABS: Glucose Point of Care 158 mg/dL (70-110)
[2023-03-09] MEDS: scopolamine 1.5 Patch 1 PATCH TRANSDERMA (11:34)
[2023-03-09] MEDS: sodium chloride 0.9% 1,000 ML 30 ML IV (11:34)
--- NOTE | 2023-03-09 11:41 | W.PM.OPSUD ---
Surgery/Procedure H&P Update DATE OF PROCEDURE: March 09, 2023 DATE H&P PERFORMED: 03/07/23 H&P UPDATE INFORMATION: I have reviewed H&P completed within last 30 days, I have examined patient prior to procedure and No changes to prior documentation PREOP DIAGNOSIS: Uterine prolapse PLANNED PROCEDURE: Operation Date: 03/09/23 11:45 Proposed Procedures p [Total vaginal hysterectomy 83511, Anterior and posterior colporrhaphy 88613], N81.3(Not Applicable) - Magen Sousa MD s Anterior Repair Anterior Colporrhaphy(Not Applicable) - Magen Sousa MD s Posterior Repair Posterior Colporrhaphy(Not Applicable) - Magen Sousa MD
[2023-03-09] MEDS: enoxaparin 30 mg/0.3 mL Syringe SUBCUT (11:44)
--- NOTE | 2023-03-09 12:24 | P.ANESUD_ITS ---
Pre-Anesthetic Update Pre-Anesthetic Assessment: Date of Surgery/Procedure: 03/09/23 Preop Tracy gnosis: Uterine prolapse Proposed Procedure: Operation Date: 03/09/23 11:45 Proposed Procedures p [Total vaginal hysterectomy 60231, Anterior and posterior colporrhaphy 14742], N81.3(Not Applicable) - Magen Sousa MD s Anterior Repair Anterior Colporrhaphy(Not Applicable) - Magen Sousa MD s Posterior Repair Posterior Colporrhaphy(Not Applicable) - Magen Sousa MD Any changes to Pre-Anesthetic Assessment?: No Last Intake: Intake Last Liquid Date 03/08/23 Last Liquid Time 23:00 Last Solid Date 03/08/23 Last Solid Time 23:00 Vitals: Temperature 98.2 F 03/09/23 10:39 Temperature Source Temporal Artery S can 03/09/23 10:39 Pulse Rate 75 03/09/23 10:39 Pulse Rhythm Regular 03/09/23 10:33 Pulse Strength 3+ Normal 03/09/23 10:33 Blood Pressure 188/91 03/09/23 10:39 Blood Pressure Madiha n 123 03/09/23 10:39 Pulse Oximetry 98 03/09/23 10:39 Oxygen Delivery Me thod Room Air 03/09/23 10:39 Exam: Pre-Anes Outpt Exam: alert, oriented x 3, clear to auscultation bilaterally and regular rate & rhythm Cardiac Studies: Echocardiogram 02/02/22
[2023-03-09] MEDS: ceFOXitin 2,000 MG in sodium chloride 0.9% (plus) 50 ML 100 MG IV (13:43)
[2023-03-09] MEDS: lidocaine-epi 2% 20 mL INJ INJECTION (15:05)
[2023-03-09] MEDS: estrogens Conjugated Cream 30 gm 1 APPLIC VAGINAL (15:58)
--- NOTE | 2023-03-09 16:06 | P.OP_ITS ---
Operative Report Date of procedure: March 09, 2023 Pre-op diagnosis: Preop Diagnosis Uterine prolapse Post-op diagnosis: Uterine prolapse stage III Post-op findings: . Procedure done: Total vaginal hysterectomy. Anterior colporrhaphy augmented with allograft. Single incision mid urethral sling. Posterior colporrhaphy. Cystoscopy. Implants: Coloplast Altis sling Specimens removed/disposition: Uterus Surgeon: Magen Sousa MD Estimated blood loss (mL): 100 IV fluids (mL): 900 Urine output (mL): 200 Procedure: After informed consent and risks, benefits, indications and alternatives reviewed with the patient was taken to the operating room. The patient was placed in dorsal lithotomy position prepped, and draped in the usual sterile fa shion. The pre-procedure timeout verifying the correct patient, procedure, site and side, could not requirements was performed and acknowledge by the OR team. A Colindres catheter was placed. A Bookwalter vaginal retractor was placed into the vagina in usual manner visualize the cervix. Cervix was grasped with a single tooth tenaculum and circumferentially infiltrated with 2% lidocaine with epinep hrine. Then cervix was circumferentially incised with bovie and the bladder was dissected off the pubovesical cervical fascia anteriorly with a sponge stick and Metzenbaum scissors. The anterior peritoneal reflection was identified and the anterior cul-de-sac was entered sharply with Metzenbaum scissors. The same procedure was performed posteriorly and a posterior colpotomy was made through the posterior cul-de-sac space without difficulty and the posterior blade of the Bookwalter vaginal retractor was advanced posteriorly into the cul-de-sac. At this time, the left and right uterosacral ligaments were isolated and ligated with 0 Vicryl. The Enseal device was placed over the uterosacral ligaments on either side and was then used in a serial fashion up through the cardinal ligaments bilaterally cross-clamped, cut, and sealed with the Enseal device. Finally, the uterine arteries were cross-clamped, cut, sealed and ligated with the Enseal device. Hemostasis was assured. The broad ligaments were then serially clamped, sealed and cut with the Enseal device on both sides. Excellent hemostasis was visualized. Both cornua were clamped, sealed and cut with the Enseal device. Then the pedicles were then suture ligated with excellent hemostasis. The uterus was excised and submitted for pathologic evaluation. No other abnormalities were noted in the pelvic cavity. Ovaries could not be identified. The peritoneum was then closed in a pursestring fashion with 0 Vicryl suture. The vaginal cuff angles were closed with [id number] #0 Vicryl suture on both sides and transfixed with the ipsilateral cardinal and uterosacral ligaments. The remainder of the vaginal cuff was closed with #0 Vicryl in a running locked fashion. Then proceeded to perform the single incision mid u rethral sling. A vertical midline incision was made beneath the midurethra, nearly 1.5 cm length. Careful submucosal dissection was performed bilaterally up to the interior portion of the inferior pubic ramus. The insertion of adductor longus tendon on the patient?s pubic ramus was identified as reference land david. Palpated the notch along the internal edge of ischiopubic ramus where the adductor longus tendon and the inferior pubic ramus meet. The Altis single incision sling (SIS) was selected. Then the needle of the SIS inserted aiming at the location of this notch. One of the integrated self-fixating tips place onto the needle by sliding it over the end of the needle. The needle/sling assembly was inserted toward the location of identified reference notch making sure that the flat of the handle is perpendicular to the desired path. The needle was tracked along the posterior surface of the ischiopubic ramus until the midline david on the mesh is approximately at the midline position under the urethra. The needle was removed and the same was repeated on the contralateral side until the appropriate sling tension under the urethra was achieved ensuring that the mesh lays flat. The needle was removed and vaginal incision was closed in a running interlocking fashion with 2-0 Vicryl. Then proceeded to perform the anterior colporrhaphy. The vaginal mucosa was then injected in the midline with normal saline. The vaginal mucosa was scored in the midline with the Bovie approximately 1 cm medial to the urethral meatus to 1 cm distal to the vaginal cuff. This vaginal mucosa was then undermined and then incised in the midline with the Metzenbaum scissors. The lateral aspects of the vaginal mucosa were then grasped with the Allis clamps and the vaginal mucosa was then dissected off the underlying fascia with the Metzenbaum scissors. Again, there was noted to be quite a bit of oozing at the incision, which was controlled with cautery. After adequate dissection was performed, bilaterally. A Coloplast allograft modified at time of application to fit spacea, 4 x 3 cm piece . The Coloplast allograft placed in front of cystocele ready to be implanted facing the vagina mucosa. Suture is placed at distal end of graft and placed towards vaginal cuff. Final suture is placed on proximal portion of the graft to complete the placement overlying the bladder. Then Interrupted vertical mattress sutures of 0 Vicryl were used to elevate the cystocele superiorly. The excessive vaginal mucosa was then trimmed with the Metzenbaum scissors and the vaginal mucosa was then reapproximated in the running interlocking fashion with 2-0 Vicryl. Then proceeded to perform the posterior colporrhaphy. An incision was made across the introitus. Metzenbaum scissors were used to tunnel beneath posterior vaginal mucosa until the apex of the rectocele bulge was reached. At this point, the rectum was from the posterior vaginal mucosa using sharp and blunt dissection, and the rectal bulge imbricated in the midline with interrupted sutures of 2-0 vicryl suture. Levator ani muscles on either side were approximated in the midline with interrupted 0 Vicryl sutures. Excess posterior vaginal mucosa was excised, and the vaginal episiotomy was repaired by approximating the posterior vaginal mucosa with a suture of Vicryl #0. At this time, instruments were removed from the vagina at hemostasis assured. Then the Colindres catheter was removed and cystoscope was inserted. The bladder was filled with sterile water. Complete evaluation of the bladder mucosa was performed noting no lacerations, dimpling, tears, bleeding of the mucosa or muscular layers. Both ureteral orifices were identified. Prompt excretion of urine from both ureteral orifices was noted. Cystoscope was withdrawn. Colindres catheter was then placed yielding clear drea urine. A vaginal packing with Premarin cream was placed and the patient was taken out of dorsal lithotomy position and awakened from the general anesthesia. The patient tolerated the procedure well and was taken to the PACU recovery room in a stable condition. Sponge, lap, needle and instruments counts were correct x3.
--- NOTE | 2023-03-09 16:25 | ANE.PACU2 ---
Inpatient post-anesthesia follow up: Airway intact: Yes Vital signs: Temperature 98 F Pulse Rate 68 Respiratory Rate 16 Blood Pressure 151/97 Pulse Oximetry 100 Oxygen Delivery Me thod Simple Mask Oxygen Flow Rate 8 Fraction of Inspir ed Oxygen Hydration adequate: Yes Nausea and vomiting: No Pain level: 3 Mental status: Baseline
[2023-03-09] MEDS: ketorolac 30 mg/mL INJ IVP ×2 (17:34→22:13)
[2023-03-09] MEDS: dextrose 5%-lactated ringers 1,000 ML 125 ML IV (17:45)
[2023-03-09] MEDS: docusate sodium 100 mg Capsule PO (17:46)
[2023-03-09] MEDS: amlodipine 10 mg Tablet PO (17:46)
[2023-03-09] MEDS: lanolin oint 7 gm 1 APPLIC TOPICAL (20:53)
[2023-03-10] VITALS: BP 148/61; PULSE 62; RESP 16; TEMP 36.7; O2SAT 90
[2023-03-10] MEDS: dextrose 5%-lactated ringers 1,000 ML 125 ML IV ×2 (02:03→09:45)
[2023-03-10 03:57] VITALS: BP 142/66; PULSE 67; RESP 16; TEMP 36.7; O2SAT 97
[2023-03-10] MEDS: levothyroxine 150 mcg Tablet 75 MCG PO (05:49)
[2023-03-10] MEDS: ketorolac 30 mg/mL INJ IVP (05:51)
[2023-03-10 06:10] LABS: Hemoglobin 10.4 g/dL (11.5-15.3); Mean Corpuscular HGB Conc 30.6 g/dL (30.0-36.0); Mean Corpuscular Hemoglobin 26.1 pg (28.0-34.0); Mean Corpuscular Volume 85.2 fl (81-99); Mean Platelet Volume 9.9 fL (7.4-10.4); Platelet Count 250 10^3/cmm (130-400); Red Blood Count 3.99 10^6/uL (4.1-5.3); Red Cell Distribution Width 13.2 % (12.1-15.1); White Blood Count 10.7 10^3/uL (4.0-10.0)
[2023-03-10 08:00] VITALS: BP 175/74; PULSE 74; RESP 19; TEMP 36.4; O2SAT 98
[2023-03-10 08:21] VITALS: BP 175/74
[2023-03-10] MEDS: docusate sodium 100 mg Capsule PO (08:21)
[2023-03-10] MEDS: hydroCHLOROthiazide 25 mg Tablet PO (08:21)
[2023-03-10] MEDS: losartan 50 mg Tablet 100 MG PO (08:21)
[2023-03-10] MEDS: amlodipine 10 mg Tablet PO (08:21)
[2023-03-10] MEDS: ascorbic acid 500 mg Tablet 1000 MG PO (08:21)
--- NOTE | 2023-03-10 09:03 | PC.PHAR ---
pt states she takes care of her own medications pt states she hasnt started using the clonidine 0.1mg-pt states she also stop taking her vit e
--- NOTE | 2023-03-10 09:44 | PM.OBGYDC ---
Discharge Providers [facility] [facility] [facility] Date of Admission: 03/09/23 16:22 Date of Discharge: 03/10/23 Attending Provider at Admission: Magen Sousa MD Attending Provider at Discharge: Magen Sousa MD Primary [employer] [facility]: Magen Sousa MD Primary Care Provider: Sharmin Monique MD Diagnoses at Discharge Discharge Diagnosis (1) Status post hysterectomy: Status: Acute (2) Status post bladder repair: Status: Acute Reason for Visit Reason for Visit: N81.3 Hospital Course Hospital Course Ms. Mohr is an 87 year old with uterine prolapse was admitted for planned total vaginal hysterectomy, anterior colporrhaphy augmented with allograft, single incision mid urethral sling, and posterior colporrhaphy. The procedures were performed without complication. Overnight observation was uneventful. However PVR was abnormal and the patient was counseled regarding being discharged home with Colindres catheter and to return to the clinic on Tuesday. She is afebrile and hemodynamically stable postoperative day 1. Tolerating diet well. Ambulating without difficulty. She was counseled regarding pelvic rest for 6 weeks (no sex, no tampons, no vaginal douches). Return to the emergency room if any fever, increased bleeding or pain. Physical Exam Narrative: GA: Alert and oriented ?3. HEENT: WNL. Heart: Regular rate and rhythm. Lungs: Clear to auscultation bilaterally. Abdomen: Bowel sounds present, nontender. INCLINOMETER TESTER: Spotting bleeding. Extremities: No edema, no cyanosis, no calves pain. Urinary Catheter Management: Colindres: Cath Placed During This Visit: yes, but has since been removed by the nurse Reason for Continuing Indwelling Catheter: Decision to DC Catheter Urinary Catheter Date of Insertion: 03/09/23 Urinary Catheter Time of Insertion: 14:15 Date Urinary Catheter Removed: 03/10/23 Time Urinary Catheter Discontinued: 05:15 History History History 4 Term 4 0 Miscarriages/Ectopic 0 Living Children 3 Discharge Data Studies Completed and Pending Pending at discharge Category Date Time Status Pathology: Surgical [PTH] Routine Pth 03/09/23 14:42 Received Laboratory Results WBC 10.7 10^3/uL (4.0-10.0) H 03/10/23 06:00 RBC 3.99 10^6/uL (4.1-5.3) L 03/10/23 06:00 Hgb 10.4 g/dL (11.5-15.3) L 03/10/23 06:00 Hct 34.0 % (37.0-47.0) L 03/10/23 06:00 MCV 85.2 fl (81-99) 03/10/23 06:00 MCH 26.1 pg (28.0-34.0) L 03/10/23 06:00 MCHC 30.6 g/dL (30.0-36.0) 03/10/23 06:00 RDW 13.2 % (12.1-15.1) 03/10/23 06:00 Plt Count 250 10^3/cmm (130-400) 03/10/23 06:00 MPV 9.9 fL (7.4-10.4) 03/10/23 06:00 Neut % (Auto) 67.6 % 03/07/23 11:04 Lymph % (Auto) 22.8 % 03/07/23 11:04 [place] % (Auto) 7.4 % 03/07/23 11:04 Eos % (Auto) 1.4 % 03/07/23 11:04 Baso % (Auto) 0.3 % 03/07/23 11:04 Neut # (Auto) 5.23 10^3/uL (1.8-7.7) 03/07/23 11:04 Lymph # (Auto) 1.8 10^3/uL (0.8-4.8) 03/07/23 11:04 [place] # (Auto) 0.6 10^3/uL (0.2-0.9) 03/07/23 11:04 Eos # (Auto) 0.1 10^3/uL (0.0-0.8) 03/07/23 11:04 Baso # (Auto) 0.0 10^3/uL (0.0-0.1) 03/07/23 11:04 Nucleated RBC % (auto) 0 % 03/07/23 11:04 Nucleated RBCs # 0.0 /100WBC 03/07/23 11:04 Sodium 138 mmol/L (136-145) 03/07/23 11:04 Potassium 3.9 mmol/L (3.5-5.1) 03/07/23 11:04 Chloride 98 mmol/L (98-107) 03/07/23 11:04 Carbon Dioxide 29 mmol/L (22-29) 03/07/23 11:04 Anion Gap 14.9 (5-19) 03/07/23 11:04 BUN 27 mg/dL (8-23) H 03/07/23 11:04 Creatinine 1.4 mg/dL (0.5-0.9) H 03/07/23 11:04 GFR Calculation Not Reportable 03/07/23 11:04 Glucose 131 mg/dL (65-115) H 03/07/23 11:04 POC Glucose 158 mg/dL (70-110) H 03/09/23 11:03 Calculated Osmolality 293 mOsm/kg (285-295) 03/07/23 11:04 Calcium 9.7 mg/dL (8.5-10.5) 03/07/23 11:04 Total Bilirubin 0.4 mg/dL (0.15-1.2) 03/07/23 11:04 AST 16 U/L (0-32) 03/07/23 11:04 ALT 11 U/L (0-33) 03/07/23 11:04 Alkaline Phosphatase 80 U/L (35-105) 03/07/23 11:04 Total Protein 7.4 g/dL (6.6-8.7) 03/07/23 11:04 Albumin 4.4 g/dL (3.5-5.2) 03/07/23 11:04 Globulin 3.0 g/dL (1.3-4.6) 03/07/23 11:04 Urine Color Light yellow (Yellow) 03/07/23 11:04 Urine Appearance Sl hazy (CLEAR) A 03/07/23 11:04 Urine pH 7 (5-7) 03/07/23 11:04 Ur Specific [place] 1.030 (1.005-1.030) 03/07/23 11:04 Urine Protein 1+ (Negative) H 03/07/23 11:04 Urine Glucose (UA) Norm (Normal) 03/07/23 11:04 Urine Ketones Negative (Negative) 03/07/23 11:04 Urine Blood 2+ (Negative) H 03/07/23 11:04 Urine Nitrate Positive (Negative) H 03/07/23 11:04 Urine Bilirubin Neg (Negative) 03/07/23 11:04 Urine Urobilinogen Norm mg/dL (Negative) 03/07/23 11:04 Ur Leukocyte Esterase 2+ (Negative) H 03/07/23 11:04 Urine RBC 0-4 /hpf (0-2) H 03/07/23 11:04 Urine WBC 15-25 /hpf (0-5) H 03/07/23 11:04 Ur Squamous Epith Cells 0-4 /hpf (0-5) H 03/07/23 11:04 Ur Transition Epith Cell 0-4 /hpf 03/07/23 11:04 Amorphous Sediment Not Reportable 03/07/23 11:04 Urine Bacteria 3+ /hpf (NONE) H 03/07/23 11:04 Blood Type A Negative 03/07/23 11:04 Rho(D) Type Negative 03/07/23 11:04 Antibody Screen Positive 03/07/23 11:04 Antibody Identification Anti-D 03/07/23 11:04 Vitals Last Vital Signs Temp 97.5 F L 03/10/23 08:00 Pulse 74 03/10/23 08:00 Resp 19 H 03/10/23 08:00 BP 175/74 03/10/23 08:21 Pulse Ox 98 03/10/23 08:00 O2 Del Method Room Air 03/10/23 08:00 O2 Flow Rate 8 03/09/23 16:20 Discharge Plan Discharge Patient Disposition: Home Condition: Stable Prescriptions: New hydrocodone-acetaminophen 5-325 mg tablet 1 tab PO Q4H PRN (Reason: pain) Qty: 10 0RF acetaminophen 325 mg capsule 325 mg PO Q4H PRN (Reason: fever or pain) Qty: 60 0RF docusate sodium [Colace] 100 mg capsule 100 mg PO BID Qty: 60 0RF ferrous sulfate [Iron (ferrous sulfate)] 325 mg (65 mg iron) tablet 325 mg PO DAILY Qty: 60 0RF ibuprofen 800 mg tablet 800 mg PO TID PRN (Reason: pain) Qty: 60 0RF nitrofurantoin macrocrystal 100 mg capsule 100 mg PO BID 5 Days Qty: 10 0RF Rx Instructions: must administer with a meal/food Continued ascorbic acid (vitamin C) 1,000 mg tablet 1 gm PO QPM levothyroxine 75 mcg tablet 75 mcg PO DAILY 90 Days Qty: 90 1RF Calcium 600 + D(3) 600 mg calcium- 200 unit capsule 2 cap PO QPM clonidine HCl 0.1 mg tablet See Rx Instructions .ROUTE .COMPLEX Rx Instructions: TAKE ONE TABLET BY MOUTH DAILY AT BEDTIME TAKE 2ND DOSE IN AM IF BLOOD PRESSUE IS HIGH PER (not taken as of 03/10/23) aspirin 325 mg Tablet 325 mg PO Q6H PRN (Reason: Pain) famotidine 40 mg tablet 40 mg PO BEDTIME PRN (Reason: Heartburn) losartan-hydrochlorothiazide 100-25 mg tablet 1 tab PO QAM amlodipine 10 mg tablet 10 mg PO QPM Tylenol PM Extra Strength 25-500 mg Tablet 2 tab PO BEDTIME PRN (Reason: Sleep) metformin 500 mg tablet extended release 24 hr 500 mg PO DAILY@12 Ibuprofen PM 200-38 mg Tablet 2 tab PO BEDTIME PRN (Reason: Sleep) Discharge Orders: Discharge Order (Routine); Ordered 03/10/23 Ordered By: Magen Sousa Referrals: Magen Sousa MD [Physician] - 1 week Discharge Diet: Diabetic Discharge Activity: Limit activity as instructed Patient Instructions: Opioid Safety, Vaginal Hysterectomy (GEN), Bladder Sling for Women (GEN), Anterior Vaginal Repair (GEN), Posterior Vaginal Repair (GEN) Activity Restrictions/Additional Instructions: 1. Please call [facility] on next working day to make your post-operative appointment Tuesday and in 2 weeks. 2. Please stay home until you come back to the clinic on first post-hospatilization check up. 3. Please follow instructions on your medications CAREFULLY. 4. If you have abdominal incision, do not cover it unless dressing is necessary because of drainage. OK to shower, but avoid bath. Leave steri-strips until they fall off. If they are still on one week after surgery, you may remove them. 5. If you had vaginal surgery or vaginal repair, Dr. Sousa may instruct you to take SITZ bath. 6. Yellow, blood tinged odorous vaginal discharge is usually normal after hysterectomy or vaginal surgeries. 7. No SEXUAL INTERCOURSE, tampons, or douches until you are completely released from the post-operative care. 8. Avoid constipation by eating right and maybe using some Metamucil or Milk of Magnesia. 9. All prescription refills are given during the working hours. Please do no wait till it runs out. Call the clinic at [phone] before your medication runs out. The clinic will get in touch with your doctor to prescribe medications if necessary. 10. Please remain within 40 mile radius from our hospital because emergencies do happen now and then during the post-operative period. 11. If you have stairs at home, take one step at a time slowly and minimize the number of trips. It helps to stay in one floor for the next few days. No lifting except what you can lift by one hand until you are released from the post-operative care. 12. Driving is discouraged until you are well healed. It may be 3-4 weeks before you feel strong enough to drive. You should be able to turn and look through the rear window without pain and you should be able to push the brake pedal very hard without pain before you drive. No fast rules, but SAFETY should be your primary concern. DO NOT drive if you are on sedating medications such as narcotics. 13. Call the clinic (during working hours) to make urgent appointment or go to the Emergency room, if any of the following occurs: i. Vaginal bleeding becomes heavy, more than a period. ii. Incision becomes red and sore, or drains pus. iii. Your TEMPERATURE is over 100.4F or you have chill. iv. IV site becomes red and swollen (a little ``knot?? is usually OK) v. Persistent nausea and vomiting vi. Persistent constipation or diarrhea vii. Rash or allergic reaction to medications. Discharge Attestations [employer] [facility] Time Spent in Discharge Care*: greater than 30 min Coding Level of Care Code Acute Code for Chg Fwd Diagnoses Status post hysterectomy Z90.710 Status post bladder repair Z98.890
--- NOTE | 2023-03-10 11:14 | PC.CHAP ---
Pastoral Care Encounter/Spiritual Assessment Type of Contact [] Declined information lead visit [] Patient/Family/Request visit [] Outpatient visit [] Follow-up visit [] Physician referral [] Code/Alert [x] Routine visit [] Staff referral [] Actively dying [] Patient sleeping [] Family support [] [] Out of room [] Palliative care [] [x] Receiving care in room [] Pre-surgical visit [] Trauma [] Long length of stay [] ICU visit [] Other: Relational/Emotional Strength [x] Patient feels connected with others/family/visitors/staff [] Distress [] Loneliness/isolation [] Abandonment Spirituality of Patient [x] Person of [place]hire [] Attends Adventist of their [place] [x] Believes in Prayer [] Reads Bible or Jain materials [] There are Spiritual issues to be addressed [employer] [x] Prayer [x] Active listening [x] Non-anxious presence [x] Spiritual/emotional support [] Crisis/trauma care [x] Spiritual counseling [] Bereavement support [] Provided bereavement packet [] Provided Bible/devotional materials [] Provided toy/stuffed animal, coloring book to patient or family member [] Provided Communion [] Anointing/[place] [] Salvation [x] Completed spiritual assessment [] Other: Impact on Illness or Injury [] Angry [] Fearful [] Anxious [] Often cries [] Exhaustion [] Unable to work [] Unable to attend baptist [] Unable to walk/stand [] Unable to read [] Unable to drive [] Unable to eat/drink [] Unable to sleep [] Unable to be with family [] Patient intubated [] Other: Summary senior was able to communicate but not about her health [facility] Time spent with patient 10 mins
[2023-03-10 11:18] VITALS: BP 175/74
[2023-03-10 11:23] VITALS: BP 140/58; PULSE 60; RESP 18; TEMP 36.4; O2SAT 96
[2023-03-10] MEDS: acetaminophen 325 mg Tablet 650 MG PO (12:01)
== END 2023-03-10 12:44 | disposition home or self-care (01) ==
LOC: MEDSURG 16:23
PROVIDERS: Admitting Provider Obstetrics & Gynecology; PCP Family Medicine; Visit Provider Obstetrics & Gynecology
PROC: 0JQC0ZZ Repair Pelvic Region Subcutaneous Tissue and Fascia, Open Approach (ICD-10-PCS; CPT 57240; 2023-03-09 11:35)
PROC: (CPT 57250; 2023-03-09 11:35)
PROC: (CPT 57288; 2023-03-09 11:35)
PROC: 0TJB8ZZ Inspection of Bladder, Via Natural or Artificial Opening Endoscopic (ICD-10-PCS; CPT 52000; 2023-03-09 11:35)
DX: N81.3 Complete uterovaginal prolapse (principal); I10 Essential (primary) hypertension; K21.9 Gastro-esophageal reflux disease without esophagitis; E11.9 Type 2 diabetes mellitus without complications; E03.9 Hypothyroidism, unspecified; Z79.84 Long term (current) use of oral hypoglycemic drugs; N84.0 Polyp of corpus uteri; D26.1 Other benign neoplasm of corpus uteri
CPT/HCPCS: 57260; 57288; 58260; 36415; 36416; 51702; 80053; 80503; 81001; 82962; 85025; 85027; 86850; 86870; 86900; 87077; 87086; 87186; 88305; 93005; C1713; C1762; G0378; J0694; J1100; J1170; J1200; J1650; J1885; J2405; J2704; J2710; J3010; J3490; J7030; J7121; Q9968

== ENCOUNTER → 2023-03-30 15:10 | Outpatient (BNVA) | payer MEDICARE, OTHER, SELFPAY | PROVIDERS: PCP Family Medicine; Visit Provider Family Medicine | DX: R05.9 Cough, unspecified (principal) | CPT/HCPCS: 71046 ==

== ENCOUNTER → 2023-04-18 15:17 | Outpatient (BNVA) | payer MEDICARE, OTHER, SELFPAY | PROVIDERS: PCP Family Medicine; Visit Provider Obstetrics & Gynecology | DX: N39.0 Urinary tract infection, site not specified (principal) | CPT/HCPCS: 84315; 87077; 87086; 87184 ==

== ENCOUNTER 2023-04-29 08:51 | Outpatient (CLI) | payer MEDICARE, OTHER, SELFPAY ==
--- NOTE | 2023-04-29 09:30 | US_ITS ---
WS: [id number] ULTRASOUND ABDOMEN LIMITED CLINICAL INFORMATION: R10.11 - Right upper quadrant pain COMPARISON: CT 05/02/2022 FINDINGS: Liver Size: Mild hepatomegaly craniocaudal length: 16.0 cm. Echogenicity: Normal. Surface nodularity: None. Mass (size and location): None. Bile ducts Intrahepatic ducts: Normal. Common bile duct diameter: 0.3 cm. Gallbladder Sludge gallstones: None. Gallbladder sludge: Present gallbladder wall thickening: None. Pericholecystic fluid: None. Sonographic Jones sign: Absent. Pancreas Normal as visualized. Right kidney: Atrophic hydronephrosis: None. Size: 7.5 cm x 3.8 cm x 3.2 cm. Simple cyst right kidney measuring 2.3 x 2.2 x 2.0 cm Left kidney: Normal Size: 9.7 x 5.4 5.1 cm Simple cyst measuring 3.1 x 3.6 x 3.9 cm Abdominal aorta and IVC Visualized portions are normal. Ascites: None. IMPRESSION: 1. Mild hepatomegaly. 2. Gallbladder sludge. No gallbladder wall thickening or pericholecystic fluid. 3. Normal common bile duct. 4. No hydronephrosis in either kidney. Atrophic right kidney. 5. Bilateral simple renal cysts described above.
== END 2023-04-29 08:52 | disposition home or self-care (01) ==
LOC: RAD 08:53
PROVIDERS: PCP Family Medicine; Visit Provider Obstetrics & Gynecology
DX: R10.11 Right upper quadrant pain (principal); R16.0 Hepatomegaly, not elsewhere classified; N28.1 Cyst of kidney, acquired
CPT/HCPCS: 76705

== ENCOUNTER → 2023-05-11 11:17 | Outpatient (BNVA) | payer MEDICARE, OTHER, SELFPAY | PROVIDERS: PCP Family Medicine; Visit Provider Family Medicine | DX: E11.9 Type 2 diabetes mellitus without complications (principal); I10 Essential (primary) hypertension; E03.9 Hypothyroidism, unspecified; N39.0 Urinary tract infection, site not specified | CPT/HCPCS: 80053; 81000; 83036; 84439; 84443; 84481; 87077; 87086; 87184 ==

== ENCOUNTER 2023-08-29 23:05 | Emergency (ER) | payer MEDICARE, OTHER, SELFPAY ==
[2023-08-29 23:14] VITALS: BP 170/71; PULSE 80; RESP 16; TEMP 36.6; O2SAT 97; BMI 23.1
[2023-08-29 23:30] VITALS: BP 153/64
--- NOTE | 2023-08-29 23:32 | W.ED.GENADLT ---
HPI - General Adult General: Chief complaint: General Medical Stated complaint: Blood Pressure Issues Time Seen by Provider: 08/29/23 23:06 History of Present Illness: 87-year-old female presents emergency department with complaints of elevated blood pressure. She states she took her blood pressure medicine at home and also checked her blood pressure and she still had a systolic of 190. She states that she rechecked it later after taking her medications and had a systolic of 189. She states that she is not having any chest pain dizziness shortness of breath or difficulty with vision. She denies neck or back pain. She states she has no history of heart attack or stroke. Associated symptoms: Deny chest pain, dyspnea or palpitations Review of Systems General: Reports: 10 or more systems reviewed and unremarkable except in HPI and below Card: Denies: chest pain or palpitations Resp: Denies: dyspnea or wheezing PFSH ED PFSH: Medical History Anxiety Cystocele Diabetes History of COVID-19 HTN (hypertension) Hx of breast cancer Hypothyroidism Recurrent UTI Tinnitus Urgency incontinence Surgical History H/O arthroscopy of left knee H/O arthroscopy of right knee H/O mastectomy LEFT H/O tubal ligation Status post bladder repair (~03/09/23) completed at the same time of hysterectomy Status post hysterectomy (~03/09/23) Total vaginal hysterectomy, anterior colporrhaphy augmented with allograft, single incision mid urethral sling, posterior colporrhaphy, cystoscopy performed by Dr. Sousa. Family History Sister CAD (coronary artery disease) Cancer Heart disease Brother CAD (coronary artery disease) Cancer Heart disease Father Cancer Stroke Mother Heart disease Blood clots in brain Denies family history of Diabetes Thyroid disease Social History Smoking and tobacco/nicotine status: never used tobacco/nicotine Alcohol intake: never Substance/Drug Use: never Marital status: / Current occupational status: retired Female Reproductive History: Spontaneous abortions: No Physical Exam Narrative: EXAM NARRATIVE: Constitutional: the patient appears well nourished and with normal development. Vital signs reviewed as documented. HENMT: Normocephalic, atraumatic. Extermal ears with normal appearance without drainage. Nose without drainage, normal appearance. Mucus membranes moist. Neck is supple, No jugular venous distension, trachea is midline, no appreciable carotid bruits. No lymphadenopathy. No meningeal signs. Flexion, extension and lateral rotation is without pain. Eyes: Pupils are equal, round, reactive to light and accommodation. No scleral icterus. Extra-ocular movement are intact. Thorax is symmetrical and with equal rise and fall with respirations. Resp: Lungs are clear to auscultation. No wheezes, rales, crackles or ronchi at present. Cardio: Regular rate and rhythm. Positive S1, S2. No appreciable murmurs, rubs or gallops. GI: Abdominal exam reveals normal bowel sounds to all quadrants. No organomegaly. No obvious palpable masses noted. No hepatomegally appreciated. Soft, nontender to palpation. Extremity: Extremities are non-edematous and both femoral and pedal pulses are 2+ and equal bilaterally. Moves all extremities well, sensation in all extremities. Neuro: Alert and oriented x4, person, place, time and situation. Cranial nerves II through XII are grossly intact, there is no focal neurological deficits that I can appreciate at present. Motor strength in the upper and lower extremities are equal and bilateral 5/5. Psych: Cooperative, calm, normal thought process, appropriate judgment. Skin: No lesions, rashes. No gross abnormalities noted. Back: Symmetrical, no obvious deformity, No CVA tenderness Course Vital Signs: Vital signs: Vital Signs Temperature 97.9 F 08/29/23 23:14 Pulse Rate 80 08/29/23 23:14 Respiratory Rate 16 08/29/23 23:14 Blood Pressure 170/71 08/29/23 23:14 Pulse Oximetry 97 08/29/23 23:14 MDM - General Adult Medical Decision Making Physical exam completed and documented I will provide the patient antihypertensive medication continue to monitor. Differential Diagnosis Medication noncompliance, malignant hypertension. Medical Records I reviewed the patient's medical records. No radiology studies performed this visit Discharge Plan Discharge Patient Disposition: Home Clinical Impression: Hypertension, uncontrolled Condition: Stable Prescriptions: No Action ascorbic acid (vitamin C) 1,000 mg tablet 1 gm PO QPM hydrocodone-acetaminophen 5-325 mg tablet 1 tab PO Q4H PRN (Reason: pain) 10 Days Qty: 20 0RF metformin 500 mg tablet extended release 24 hr 500 mg PO DAILY 90 Days Qty: 90 1RF losartan-hydrochlorothiazide 100-25 mg tablet 1 tab PO QAM 90 Days Qty: 90 1RF amlodipine 10 mg tablet 10 mg PO QPM 90 Days Qty: 90 1RF levothyroxine 88 mcg tablet 88 mcg PO DAILY 90 Days Qty: 90 0RF ciprofloxacin HCl 500 mg tablet 500 mg PO BID 7 Days Qty: 14 0RF Calcium 600 + D(3) 600 mg calcium- 200 unit capsule 2 cap PO QPM clonidine HCl 0.1 mg tablet See Rx Instructions .ROUTE .COMPLEX Rx Instructions: TAKE ONE TABLET BY MOUTH DAILY AT BEDTIME TAKE 2ND DOSE IN AM IF BLOOD PRESSUE IS HIGH PER DR (not taken as of 03/10/23) aspirin 325 mg Tablet 325 mg PO Q6H PRN (Reason: Pain) Tylenol PM Extra Strength 25-500 mg Tablet 2 tab PO BEDTIME PRN (Reason: Sleep) Ibuprofen PM 200-38 mg Tablet 2 tab PO BEDTIME PRN (Reason: Sleep) acetaminophen 325 mg capsule 325 mg PO Q4H PRN (Reason: fever or pain) Qty: 60 0RF ibuprofen 800 mg tablet 800 mg PO TID PRN (Reason: pain) Qty: 60 0RF Iron (ferrous sulfate) 325 mg (65 mg iron) tablet 325 mg PO DAILY Qty: 60 0RF Discharge Orders: Discharge ED (Routine); Ordered 08/30/23 Ordered By: Timbo Zavala Referrals: Sharmin Monique MD [Primary Care Provider] - Discharge Diet: Advance as tolerated Discharge Activity: Resume usual activity Patient Instructions: Opioid Safety, Pain Management Activity Restrictions/Additional Instructions: Activity Restrictions/Additional Instructions: Thank you for choosing [facility] for your healthcare needs today. Please realize that you were seen in the Emergency Department and that we are providing you with an emergency medical screening exam and this may not be a complete and all inclusive of all the testing and or medical work-up that you may need to determine your ailment or severity of your illness. It is very important that you follow-up as instructed with your Primary care provider or Specialist for additional evaluation and to discuss your medical treatment plan. You may return to the Emergency Department should you have concerns or if your condition changes or worsens in any way. 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
== END 2023-08-30 00:27 | disposition home or self-care (01) ==
PROVIDERS: Emergency Provider Internal Medicine; PCP Family Medicine
DX: I10 Essential (primary) hypertension (principal); E11.9 Type 2 diabetes mellitus without complications; Z85.3 Personal history of malignant neoplasm of breast; E03.9 Hypothyroidism, unspecified; N39.0 Urinary tract infection, site not specified; N18.2 Chronic kidney disease, stage 2 (mild); R10.11 Right upper quadrant pain; R30.0 Dysuria; N23 Unspecified renal colic; N39.41 Urge incontinence
CPT/HCPCS: 80053; 81000; 83036; 84439; 84443; 84481; 85025; 87077; 87086; 87184; 99282

== ENCOUNTER → 2023-08-30 11:45 | Outpatient (BNVA) | payer MEDICARE, OTHER, SELFPAY | PROVIDERS: PCP Family Medicine; Visit Provider Family Medicine | DX: I10 Essential (primary) hypertension (principal); E03.9 Hypothyroidism, unspecified; E11.9 Type 2 diabetes mellitus without complications; N39.0 Urinary tract infection, site not specified; N18.2 Chronic kidney disease, stage 2 (mild); R10.11 Right upper quadrant pain; R30.0 Dysuria; N23 Unspecified renal colic; N39.41 Urge incontinence | CPT/HCPCS: 80053; 81000; 83036; 84439; 84443; 84481; 85025; 87077; 87086; 87184 ==

== ENCOUNTER → 2023-09-15 17:31 | Outpatient (BNVA) | payer MEDICARE, OTHER, SELFPAY | PROVIDERS: PCP Family Medicine; Referring Provider Family Medicine; Visit Provider Family Medicine | DX: N39.0 Urinary tract infection, site not specified (principal) | CPT/HCPCS: 81000; 87077; 87086; 87184 ==

== ENCOUNTER → 2023-09-26 15:43 | Outpatient (BNVA) | payer MEDICARE, OTHER, SELFPAY | PROVIDERS: PCP Family Medicine; Visit Provider Obstetrics & Gynecology | DX: N39.0 Urinary tract infection, site not specified (principal); R10.2 Pelvic and perineal pain | CPT/HCPCS: 84315; 87086 ==

== ENCOUNTER 2023-10-12 08:49 | Outpatient (CLI) | payer MEDICARE, OTHER, SELFPAY ==
--- NOTE | 2023-10-12 09:30 | CT_ITS ---
WS: [id number] CT ABDOMEN AND PELVIS NONCONTRAST HISTORY: R10.2 - Pelvic and perineal pain TECHNIQUE: Imaging performed through the abdomen and pelvis. Coronal and sagittal reformats are submi tted. All CT scans at [facility] use at least one of these dose optimization techniques: auto mated exposure control; mA and/or kV adjustment per patient size (includes targeted exams where dose is matched to clinical indication); or iterative reconstruction. DLP: 262.95 mGy.cm COMPARISON: 05/02/2022 Lower thorax: Mild peripheral interstitial thickening. Mild cardiomegaly. Small hiatal hernia. Liver: Normal size liver with a few granulomata. No bile duct dilatation. Gallbladder: Normally distended gallbladder with stones layering in the dependent portion. No pericho lecystic fluid. Pancreas: Normal size and attenuation. Normal pancreatic duct. No pancreatitis or mass. Spleen: Normal size with granulomata. Adrenal glands: Normal. No mass. Right kidney: Moderate renal atrophy. Kidney measures 6.6 cm in length. Acquired renal cysts. No obst ruction. There is a cortical cyst measuring 6 mm in the posterior mid kidney which is probably a hemo rrhagic cyst. Left kidney: Normal size with no obstruction. There is several cysts. The largest in the lower pole m easures 4.1 x 4.9 cm. Aorta: Moderate to severe atherosclerosis abdominal aorta. No aneurysm. Atherosclerosis continues int o the common iliac arteries. Heavy calcification at the origin of the celiac axis and SMA. No free fluid, intraperitoneal air or significant lymphadenopathy. GI tract: Stomach is normally distended. No small bowel obstruction. Moderate diffuse constipation. N umerous diverticula in the distal colon. No acute diverticulitis. No obstruction. Appendix is not vis ualized. Abdominal wall: Small umbilical hernia contains fat only. Pelvis: Status post hysterectomy. No pelvic mass. No free fluid. No air in the urinary bladder. Urina ry bladder is not well distended. Osseous structures: Mild concavity involving the superior endplate of T12 without retropulsion. IMPRESSION: 1. No pelvic mass or free fluid. No in the urinary bladder. Status post hysterectomy. 2. Diffuse constipation with numerous diverticula in the distal colon. No obstruction. 3. Cholelithiasis without acute cholecystitis. 4. RIGHT renal atrophy similar to prior studies. 5. Bilateral renal cysts. 6. Sigmoid diverticulosis without acute diverticulitis.
== END 2023-10-12 08:50 | disposition home or self-care (01) ==
PROVIDERS: PCP Family Medicine; Visit Provider Obstetrics & Gynecology
DX: R10.2 Pelvic and perineal pain (principal); K59.00 Constipation, unspecified; K57.30 Diverticulosis of large intestine without perforation or abscess without bleeding; Z90.710 Acquired absence of both cervix and uterus; K80.20 Calculus of gallbladder without cholecystitis without obstruction; N26.1 Atrophy of kidney (terminal); N28.1 Cyst of kidney, acquired
CPT/HCPCS: 74176

== ENCOUNTER → 2023-10-20 10:36 | Outpatient (BNVA) | payer MEDICARE, OTHER, SELFPAY | PROVIDERS: PCP Family Medicine; Referring Provider Obstetrics & Gynecology; Visit Provider Surgery | DX: K80.20 Calculus of gallbladder without cholecystitis without obstruction (principal) | CPT/HCPCS: 99204 ==

== ENCOUNTER 2023-11-08 07:55 | Day surgery (SDC) | payer MEDICARE, OTHER, SELFPAY ==
[2023-11-08] VITALS (10 sets, daily range): BP systolic 160–190; BP diastolic 55–92; PULSE 66–97; RESP 16–33; TEMP 36.2–36.8; O2SAT 94–100; BMI 20.9
[2023-11-08 08:34] LABS: Glucose Point of Care 161 mg/dL (70-110)
[2023-11-08] MEDS: sodium chloride 0.9% 1,000 ML 30 ML IV (08:36)
--- NOTE | 2023-11-08 09:56 | ANES.PREANE2 ---
Pre-Anesthetic Assessment Height/Weight: Height 1.65 m Weight 57.153 kg Temp Pulse Resp BP Pulse Ox O2 Del Method 98.0 F 97 18 190/92 100 Room Air 11/08/23 08:24 11/08/23 08:24 11/08/23 08:24 11/08/23 08:24 11/08/23 08:24 11/08/23 08:24 Operation Date: 11/08/23 09:50 Proposed Procedures p Laparoscopic Cholecystectomy(Not Applicable) - Jemraine Valenzuela DO Familial anesthetic complications: PONV - did not experience PONV with anesthestic in march 11 where she was given decadon, zofran, and benadryl Was Beta Thang taken within 24 hours: N/A Was Clonidine taken within 24 hours: N/A Last intake: Intake Last Liquid Date 11/07/23 Last Liquid Time 22:00 Last Solid Date 11/07/23 Last Solid Time 18:00 Social No alcohol and No tobacco Exam alert, oriented x 3, clear to auscultation bilaterally and regular rate & rhythm Airway Mallampati: Class I Dentition: other (multiple missing) CV/HEM Hypertension Enlarged heart Chronic Renal Failure Metabolic Diabetes Mellitus and Thyroid Disease Anesthetic Plan ASA status: 3 Anesthesia: General Risk of > 500 ml blood loss (7ml/kg in children): No Medications/Allergies Home Medications Medication Instructions Recorded Confirmed Last Taken Type ascorbic acid (vitamin C) 1,000 mg 1 gm PO QPM 07/17/20 11/08/23 11/07/23 History tablet calcium carbonate 600 mg-vitamin 2 cap PO QPM 07/17/20 11/08/23 11/07/23 History D3 5 mcg (200 unit) capsule (Calcium 600 + D(3)) amlodipine 10 mg tablet 10 mg PO QPM 90 days #90 tabs 05/11/23 11/08/23 11/07/23 Rx losartan 100 1 tab PO QAM 90 days #90 tabs 05/11/23 11/08/23 11/07/23 Rx mg-hydrochlorothiazide 25 mg tablet metformin 500 mg tablet,extended 500 mg PO DAILY 90 days #90 tabs 05/11/23 11/08/23 11/07/23 Rx release 24 hr clonidine HCl 0.1 mg tablet 0.1 mg PO BID 90 days #180 tabs 09/06/23 11/08/23 11/07/23 Rx levothyroxine 88 mcg tablet 88 mcg PO DAILY 90 days #90 tabs 09/20/23 11/08/23 11/07/23 Rx ondansetron 4 mg disintegrating 4 mg PO BID PRN nausea and 09/22/23 11/08/23 11/07/23 Rx tablet vomiting 7 days #14 tabs Allergies Allergy/AdvReac Type Severity Reaction Status Date / Time amoxicillin [From Augmentin] Allergy Intermediate rash Verified 11/08/23 08:20 clavulanic acid Allergy Intermediate rash Verified 11/08/23 08:20 [From Augmentin] lisinopril Allergy Mild Unknown Verified 11/08/23 08:20 chocolate flavor Allergy ADR-Hyperte Verified 11/08/23 08:20 nsion hydrocodone Allergy ALGY-Hives Verified 11/08/23 08:20 Iodinated Contrast Media Allergy ALGY-Rash Verified 11/08/23 08:20 oxycodone Allergy Unknown Verified 11/08/23 08:20 Current Medications Generic Name Dose Route Start Last Admin Trade Name Freq PRN Reason Stop Dose Admin Sodium Chloride 1,000 mls @ 30 mls/hr 11/08/23 08:15 11/08/23 08:36 Sodium Chloride 0.9% IV 11/09/23 08:14 30 mls/hr .Q24H ERICH Administration PFSH Anesthesia Medical History Anxiety Tinnitus Diabetes History of COVID-19 Cystocele Urgency incontinence HTN (hypertension) Metoprolol discontinued due to side effect Hypothyroidism Hx of breast cancer Recurrent UTI Surgical History Status post bladder repair (~03/09/23) completed at the same time of hysterectomy Status post hysterectomy (~03/09/23) Total vaginal hysterectomy, anterior colporrhaphy augmented with allograft, single incision mid urethral sling, posterior colporrhaphy, cystoscopy performed by Dr. Sousa. H/O arthroscopy of right knee H/O mastectomy LEFT H/O arthroscopy of left knee H/O tubal ligation Family History Sister CAD (coronary artery disease) Cancer Heart disease Brother CAD (coronary artery disease) Cancer Heart disease Father Cancer Stroke Mother Heart disease Blood clots in brain Denies family history of Diabetes Thyroid disease Social History Smoking and tobacco/nicotine status: never used tobacco/nicotine Alcohol intake: never Substance/Drug Use: never Marital status: / Current occupational status: retired Female Reproductive History Spontaneous abortions: No Data Anesthesia Cardiac Studies: Echocardiogram 02/02/22
--- NOTE | 2023-11-08 10:14 | W.PM.OPSUD ---
Surgery/Procedure H&P Update DATE OF PROCEDURE: November 08, 2023 DATE H&P PERFORMED: 10/20/23 H&P UPDATE INFORMATION: I have reviewed H&P completed within last 30 days, I have examined patient prior to procedure and No changes to prior documentation PLANNED PROCEDURE: Operation Date: 11/08/23 09:50 Proposed Procedures p Laparoscopic Cholecystectomy(Not Applicable) - Jermaine Valenzuela DO
[2023-11-08] MEDS: vancomycin 1,000 MG in sodium chloride 0.9% 250 ML 250 MG IV (10:40)
[2023-11-08] MEDS: lidocaine-epi 2% PF 1:200,000 20 mL SDV XX (11:31)
--- NOTE | 2023-11-08 11:50 | P.OP_ITS ---
Operative Report Date of procedure: November 08, 2023 Surgeon: Jermaine Valenzuela DO Brief History: This is a very pleasant 88-year-old female presented to my office with symptomatic cholelithiasis. Laparoscopic cholecystectomy is indicated. The risk and benefits were explained and documented. Procedure: Preoperative diagnosis: Symptomatic cholelithiasis Postoperative diagnosis: Same Procedure performed: Laparoscopic cholecystectomy Surgeon: Dr. Jermaine Valenzuela DO Estimated blood loss: 5 mL Specimens: Gallbladder to pathology Complications: None apparent Description of procedure: Patient was wheeled into the operative room and placed on the OR table in a supine position. Abdomen was inspected prepped and draped in usual sterile fashion. Time-out was performed and all present were in agreement. A 15 blade scalp was used to make a stab incision in the left upper quadrant and intra- abdominal insufflation was achieved using a Veress needle. After localizing the tissue incisions were made and a 5 millimeter trocar was placed into the umbilicus as well as 2 in the right upper quadrant. A 12 millimeter trocar was placed in the epigastrium. Gallbladder was grasped and elevated. The triangle of Calot was carefully dissected using blunt dissection and electrocautery until the triangle of Calot clearly identified. The cystic duct was clipped proximally and double clipped distally. The duct was then ligated proximally. The cystic artery was doubly clipped and ligated. The gallbladder was then removed from the liver bed using electrocautery. The gallbladder was removed from the abdomen using an Endo-Catch bag through the epigastric incision. The liver bed was inspected and no bleeding was seen. The abdomen was irrigated and suctioned. All ports removed. Skin was washed and dried. Incisions were closed with 4-0 Monocryl in a subcuticular interrupted fashion. Skin glue was applied. Patient tolerated the procedure well.
[2023-11-08] MEDS: TRAMadol 50 mg Tablet 100 MG PO (12:59)
--- NOTE | 2023-11-08 13:35 | ANE.PACU2 ---
Inpatient post-anesthesia follow up: Airway intact: Yes Vital signs: Temperature 97.2 F Pulse Rate 71 Respiratory Rate 16 Blood Pressure 171/69 Pulse Oximetry 100 Oxygen Delivery Me thod Room Air Oxygen Flow Rate 6 Fraction of Inspir ed Oxygen Hydration adequate: Yes Nausea and vomiting: No Pain level: 1 Mental status: Baseline
== END 2023-11-08 13:34 | disposition home or self-care (01) ==
PROVIDERS: PCP Family Medicine; Visit Provider Surgery
PROC: 0FT44ZZ Resection of Gallbladder, Percutaneous Endoscopic Approach (ICD-10-PCS; CPT 47562; principal; 2023-11-08 09:40)
DX: K80.10 Calculus of gallbladder with chronic cholecystitis without obstruction (principal); I10 Essential (primary) hypertension; E11.9 Type 2 diabetes mellitus without complications; F41.9 Anxiety disorder, unspecified; Z86.16 Personal history of COVID-19; E03.9 Hypothyroidism, unspecified; Z85.3 Personal history of malignant neoplasm of breast
CPT/HCPCS: 47562; 36416; 82962; 88304; J1100; J2405; J2704; J3010; J3370; J3490; J7030; J7050

== ENCOUNTER → 2023-11-21 11:02 | Outpatient (BNVA) | payer MEDICARE, OTHER, SELFPAY | PROVIDERS: PCP Family Medicine; Visit Provider Surgery | DX: Z90.49 Acquired absence of other specified parts of digestive tract (principal); Z98.890 Other specified postprocedural states | CPT/HCPCS: 99024 ==

== ENCOUNTER 2023-11-23 09:06 | Outpatient (CLI) | payer MEDICARE, OTHER, SELFPAY ==
--- NOTE | 2023-11-23 09:30 | MM_ITS ---
WS: [id number] RIGHT DIAGNOSTIC DIGITAL TOMOSYNTHESIS MAMMOGRAM WITH CAD HISTORY: Z85.3 - Personal history of malignant neoplasm of breast COMPARISON: None available. Bilateral CC, ML and MLO views with tomosynthesis and synthetic mammography submitted. Computer aided detection analyzed. Breast composition: There are scattered areas of fibroglandular density. Scattered benign calcificati ons and vascular calcifications. No change in the asymmetries. IMPRESSION: MM/[place] [id number] BI-RADS: 2-Benign FOLLOW UP: 1 Year Follow-up
== END 2023-11-23 09:07 | disposition home or self-care (01) ==
LOC: RAD 09:06
PROVIDERS: PCP Family Medicine; Visit Provider Family Medicine
DX: Z85.3 Personal history of malignant neoplasm of breast (principal); R92.321 Mammographic fibroglandular density, right breast; R92.1 Mammographic calcification found on diagnostic imaging of breast
CPT/HCPCS: 77061; G0279

== ENCOUNTER → 2024-02-07 10:33 | Outpatient (BNVA) | payer MEDICARE, OTHER, SELFPAY | PROVIDERS: PCP Family Medicine; Visit Provider Nurse Practitioner Family | DX: M79.621 Pain in right upper arm (principal) | CPT/HCPCS: 73060 ==

== ENCOUNTER → 2024-05-04 10:33 | Outpatient (BNVA) | payer MEDICARE, OTHER, SELFPAY | PROVIDERS: PCP Family Medicine; Visit Provider Obstetrics & Gynecology | DX: R32 Unspecified urinary incontinence (principal) | CPT/HCPCS: 84315; 87077; 87086; 87184 ==

== ENCOUNTER → 2024-05-08 10:14 | Outpatient (BNVA) | payer MEDICARE, OTHER, SELFPAY | PROVIDERS: PCP Family Medicine; Referring Provider Family Medicine; Visit Provider Family Medicine | DX: I10 Essential (primary) hypertension (principal); E03.9 Hypothyroidism, unspecified; E11.9 Type 2 diabetes mellitus without complications; R30.0 Dysuria | CPT/HCPCS: 80053; 80061; 81000; 83036; 84439; 84443; 84481; 87086 ==